=== PATIENT | female | born 1950 | race Caucasian/White ===

== ENCOUNTER → 2016-12-21 | Outpatient (CLI) | payer MEDICARE, OTHER ==
[2016-12-21 19:11] LABS: BASOPHILS % (AUTO) 0.5 %; EOSINOPHILS # (AUTO) 0.1 10^3/uL (0.0-0.7); EOSINOPHILS % (AUTO) 2.2 %; HCT - HEMATOCRIT 44.3 % (37.0-47.0); HGB - HEMOGLOBIN 14.8 g/dL (12.0-16.0); LYMPHOCYTES # (AUTO) 2.1 10^3/uL (1.5-3.5); LYMPHOCYTES % (AUTO) 31.8 %; MEAN CORPUSCULAR HEMOGLOBIN 34.8 pg (27.0-31.0); MEAN CORPUSCULAR HGB CONC 33.5 g/dL (32.0-36.0); MEAN CORPUSCULAR VOLUME 103.9 fL (81.0-99.0); MEAN PLATELET VOLUME 9.4 fL (7.9-10.8); MONOCYTES # (AUTO) 0.5 10^3/uL (0.0-1.0); NEUTROPHILS # (AUTO) 3.9 10^3/uL (1.5-6.6); NEUTROPHILS % (AUTO) 58.5 %; RED BLOOD COUNT 4.26 10^6/uL (4.20-5.40); RED CELL DISTRIBUTION WIDTH 13.9 % (12.0-15.0); UNCORRECTED WHITE BLOOD COUNT 6.7 x10^3/uL; WHITE BLOOD COUNT 6.7 x10^3/uL (4.8-10.8)
[2016-12-21 19:14] LABS: CHOL/HDL RATIO 3.2 (<4.4); CHOLESTEROL 213 mg/dL; HDL CHOLESTEROL 66 mg/dL; LDL/HDL RATIO 1.9 (<4.4); TRIGLYCERIDES 119 mg/dL; VLDL CHOLESTEROL 24 mg/dL
[2016-12-22 10:14] LABS: ALBUMIN/GLOBULIN RATIO 1.5 (1.0-2.2); BILIRUBIN,TOTAL 0.9 mg/dL (0.2-1.0); BUN - BLOOD UREA NITROGEN 15 mg/dL (6-20); CALCIUM 9.4 mg/dL (8.5-10.3); CARBON DIOXIDE - CO2 28 mmol/L (21-32); CHLORIDE 100 mmol/L (101-111); CREATININE 0.7 mg/dL (0.4-1.0); GFR - MDRD 84 (>89); GLUCOSE 86 mg/dL (70-100); POTASSIUM 4.2 mmol/L (3.5-5.0); SODIUM 137 mmol/L (135-145); TOTAL PROTEIN 6.8 g/dL (6.7-8.2)
== END ==
LOC: LAB.WCP 11:18
PROVIDERS: ATTEND Physician Assistant Medical
DX: E78.5 Hyperlipidemia, unspecified (principal); L65.9 Nonscarring hair loss, unspecified
CPT/HCPCS: 36415; 80053; 80061; 84443; 85025

== ENCOUNTER 2017-06-07 10:33 | Outpatient (CLI) | payer MEDICARE, OTHER ==
--- NOTE | 2017-06-18 13:56 | Mammography Report ---
DIGITAL SCREENING MAMMOGRAM: 06/07/2017 CLINICAL INDICATION: A 66-year-old with family history of breast cancer for screening. COMPARISON: The patient reports having had previous mammograms, but they are not available for direct comparison. If records in your office indicate where they were performed, we would be happy to try to obtain them for direct comparison. Otherwise, this will serve as a new baseline. TECHNIQUE: Routine CC and MLO projections were obtained of the breasts. FINDINGS: The breasts demonstrate fatty replacement bilaterally. Punctate, typically benign calcifications are present. No suspicious masses, clustered microcalcifications, or regions of architectural distortion are identified. IMPRESSION: BENIGN FINDINGS. RECOMMENDATION: Routine annual screening unless otherwise clinically indicated. BI-RADS CATEGORY 2 - BENIGN FINDINGS. STANDARD QUALIFYING STATEMENTS: 1. This examination was reviewed with the aid of Computer-Aided Detection (CAD). 2. A negative or benign imaging report should not delay biopsy if clinically suspicious findings are present. Consider surgical consultation if warranted. More than 5% of cancers are not identified by imaging. 3. Dense breasts may obscure an underlying neoplasm. TD: 06/18/2017 13:55
== END 2017-06-07 10:34 | disposition home or self-care (01) ==
LOC: DI 10:33
PROVIDERS: ATTEND Physician Assistant Medical
DX: Z12.31 Encounter for screening mammogram for malignant neoplasm of breast (principal); Z80.3 Family history of malignant neoplasm of breast
CPT/HCPCS: 77067

== ENCOUNTER 2017-06-12 09:06 | Outpatient (CLI) | payer MEDICARE, OTHER ==
--- NOTE | 2017-06-12 16:13 | DEXA Report ---
DEXA SCAN: 06/12/2017 CLINICAL INDICATION: Postmenopausal. TECHNIQUE: Dual energy x-ray absorptiometry (DXA) was performed on a [employer] system. Regions measured are the AP spine, femoral neck, and, if needed, forearm. COMPARISON: None. In accordance with the International Society for Clinical Densitometry (ISCD) guidelines, data from previous exams may be reanalyzed using current recommendations and techniques. This is done to allow a more accurate basis for comparison with the current study. FINDINGS Data for the lumbar spine is as follows: REGION BMD (g/cm/cm) T-SCORE Z-SCORE L1 0.972 -1.3 -0.6 L2 1.037 -1.4 -0.6 L3 1.131 -0.6 0.2 L4 1.183 -0.1 0.6 L1-L4 1.089 -0.8 0.0 NOTE: All evaluable vertebrae are used for classification. Data for the hip is as follows: REGION BMD (g/cm/cm) T-SCORE Z-SCORE Neck 1.006 -0.2 0.7 TOTAL 1.020 0.1 0.8 NOTE: The femoral neck or total proximal femur, whichever is lowest, is used for classification. IMPRESSION WHO CLASSIFICATION BASED ON THE INTERNATIONAL REFERENCE STANDARD IS NORMAL. FRACTURE RISK IS NOT INCREASED. RECOMMENDATION: Patients with diagnosis of osteoporosis or osteopenia should have regular bone mineral density assessment. For those eligible for Medicare, routine testing is allowed once every 2 years. Testing frequency can be increased for patients who have rapidly progressing disease or for those who are receiving medical therapy to restore bone mass. COMMENT World Health Organization (WHO) definitions for osteoporosis and osteopenia: NORMAL BMD: T-score at 1.0 or higher, fracture risk is low. OSTEOPENIA BMD: T-score between 1.0 and -2.5, fracture risk is increased. OSTEOPOROSIS BMD: T-score at 2.5 or lower, fracture risk high. National Osteoporosis Foundation recommends: 1. Obtain adequate dietary calcium (at least 1200 mg per day) and vitamin D (400 -800 international units per day). 2. Participate, as appropriate, in regular weightbearing and muscle- strengthening exercise. 3. Avoid tobacco use and reduce alcohol and caffeine intake. 4. For more detailed information see the website at www.NOF.org. TD: 06/12/2017 11:41 ZINA
== END 2017-06-12 09:07 | disposition home or self-care (01) ==
LOC: DI 09:06
PROVIDERS: ATTEND Physician Assistant Medical
DX: M89.9 Disorder of bone, unspecified (principal)
CPT/HCPCS: 77080

== ENCOUNTER 2017-12-20 07:39 | Outpatient (CLI) | payer MEDICARE, OTHER ==
[2017-12-20 13:10] LABS: BASOPHILS % (AUTO) 0.2 %; EOSINOPHILS % (AUTO) 0.3 %; HGB - HEMOGLOBIN 14.8 g/dL (12.0-16.0); LYMPHOCYTES # (AUTO) 1.2 10^3/uL (1.5-3.5); LYMPHOCYTES % (AUTO) 19.5 %; MEAN CORPUSCULAR HEMOGLOBIN 35.4 pg (27.0-31.0); MEAN CORPUSCULAR HGB CONC 34.6 g/dL (32.0-36.0); MEAN CORPUSCULAR VOLUME 102.5 fL (81.0-99.0); MEAN PLATELET VOLUME 9.1 fL (7.9-10.8); MONOCYTES # (AUTO) 0.3 10^3/uL (0.0-1.0); MONOCYTES % (AUTO) 5.3 %; NEUTROPHILS # (AUTO) 4.7 10^3/uL (1.5-6.6); NEUTROPHILS % (AUTO) 74.7 %; PLT - PLATELET COUNT 194 10^3/uL (130-450); RED BLOOD COUNT 4.18 10^6/uL (4.20-5.40); RED CELL DISTRIBUTION WIDTH 13.4 % (12.0-15.0); WHITE BLOOD COUNT 6.4 x10^3/uL (4.8-10.8)
[2017-12-20 13:28] LABS: ALBUMIN 3.9 g/dL (3.2-5.5); ALBUMIN/GLOBULIN RATIO 1.3 (1.0-2.2); ALKALINE PHOSPHATASE 57 IU/L (42-121); ALT ALANINE AMINOTRANSFERASE 45 IU/L (10-60); AST ASPARTATE AMINOTRANSFERASE 31 IU/L (10-42); BILIRUBIN,TOTAL 0.8 mg/dL (0.2-1.0); BUN - BLOOD UREA NITROGEN 19 mg/dL (6-20); CALCIUM 9.2 mg/dL (8.5-10.3); CARBON DIOXIDE - CO2 28 mmol/L (21-32); CHLORIDE 102 mmol/L (101-111); CHOL/HDL RATIO 3.9 (<4.4); CHOLESTEROL 255 mg/dL; CREATININE 0.7 mg/dL (0.4-1.0); GFR - MDRD 83 (>89); GLUCOSE 130 mg/dL (70-100); HDL CHOLESTEROL 65 mg/dL; LDL CHOLESTEROL,CALCULATED 173 mg/dL; LDL/HDL RATIO 2.7 (<4.4); SODIUM 136 mmol/L (135-145); VLDL CHOLESTEROL 17 mg/dL
[2017-12-20 13:40] LABS: HB2 TOTAL 15.6 g/dL; HEMOGLOBIN A1C 0.56 g/dL; HEMOGLOBIN A1C % 5.4 % (4.6-6.2)
== END 2017-12-20 07:40 | disposition home or self-care (01) ==
LOC: LAB.WCP 07:39
PROVIDERS: ATTEND Physician Assistant Medical
DX: I10 Essential (primary) hypertension (principal); E78.5 Hyperlipidemia, unspecified
CPT/HCPCS: 36415; 80053; 80061; 83036; 83721; 85025

== ENCOUNTER 2018-06-06 07:55 | Outpatient (CLI) | payer MEDICARE, OTHER ==
[2018-06-06 13:07] LABS: ALBUMIN 3.8 g/dL (3.2-5.5); ALBUMIN/GLOBULIN RATIO 1.4 (1.0-2.2); ALKALINE PHOSPHATASE 52 IU/L (42-121); ALT ALANINE AMINOTRANSFERASE 36 IU/L (10-60); AST ASPARTATE AMINOTRANSFERASE 28 IU/L (10-42); BILIRUBIN,TOTAL 0.7 mg/dL (0.2-1.0); BUN - BLOOD UREA NITROGEN 25 mg/dL (6-20); CALCIUM 8.7 mg/dL (8.5-10.3); CARBON DIOXIDE - CO2 29 mmol/L (21-32); CHLORIDE 100 mmol/L (101-111); CHOL/HDL RATIO 3.1 (<4.4); CHOLESTEROL 224 mg/dL; CREATININE 0.7 mg/dL (0.4-1.0); GFR - MDRD 83 (>89); GLUCOSE 97 mg/dL (70-100); HDL CHOLESTEROL 72 mg/dL; LDL CHOLESTEROL,CALCULATED 136 mg/dL; LDL/HDL RATIO 1.9 (<4.4); SODIUM 137 mmol/L (135-145); TOTAL PROTEIN 6.5 g/dL (6.7-8.2); VLDL CHOLESTEROL 16 mg/dL
[2018-06-06 13:12] LABS: HB2 TOTAL 15.3 g/dL; HEMOGLOBIN A1C 0.55 g/dL; HEMOGLOBIN A1C % 5.4 % (4.6-6.2)
== END 2018-06-06 07:56 | disposition home or self-care (01) ==
LOC: LAB.WCP 07:55
PROVIDERS: ATTEND Physician Assistant Medical
DX: E78.5 Hyperlipidemia, unspecified (principal); R73.9 Hyperglycemia, unspecified
CPT/HCPCS: 36415; 80053; 80061; 83036; 83721

== ENCOUNTER 2018-06-07 00:01 | Outpatient (CLI) | payer MEDICARE, OTHER ==
--- NOTE | 2018-06-07 01:29 | Ultrasound Report ---
Reason: VARICOSE VEINS, LOWER EXTREMITIES, CONTUSION OF RI Procedure Date: 06/07/2018 Accession Number: [id number] / [id number] Procedure: US - Duplex Ext Veins Right CPT Code: FULL RESULT: EXAM: RIGHT LOWER EXTREMITY VENOUS ULTRASOUND EXAM DATE: 06/07/2018 01:00 AM. CLINICAL HISTORY: VARICOSE VEINS, LOWER EXTREMITIES, CONTUSION. COMPARISON: None. TECHNIQUE: Real-time sonographic vascular imaging was performed by the shop blacksmith through the lower extremity utilizing both color-flow and Doppler spectral analysis. Multiple key account representative static images were saved for review. FINDINGS: Common Femoral Vein (CFV): Normal. CFV-GSV Junction: Normal. Profunda Femoral Vein (PFV): Normal. Femoral Vein (FV) Prox: Normal. Femoral Vein (FV) Mid: Normal. Femoral Vein (FV) Dist: Normal. Popliteal Vein: Normal. Posterior Tibial Veins: Normal. Peroneal Veins: Normal. Contralateral Side CFV: Normal. Other: Possible subcutaneous hematoma measuring 2.6 x 0.8 x 3.5 cm. IMPRESSION: No evidence for deep venous thrombosis. RADIA The call report notification system was initiated by Dr. Enrique Ramos at 01:27 AM on 06/07/2018.
== END 2018-06-07 00:02 | disposition home or self-care (01) ==
LOC: DI 00:01
PROVIDERS: ATTEND Family Medicine
DX: I83.90 Asymptomatic varicose veins of unspecified lower extremity (principal); S80.11XA Contusion of right lower leg, initial encounter

== ENCOUNTER 2018-06-11 10:00 | Outpatient (CLI) | payer MEDICARE, OTHER | END 2018-06-11 23:59 | disposition home or self-care (01) | LOC: LAB.WCP 10:00 | PROVIDERS: ATTEND Family Medicine | DX: S80.11XD Contusion of right lower leg, subsequent encounter (principal) | CPT/HCPCS: 87070; 87075; 87077; 87186; 87205 ==

== ENCOUNTER 2018-10-16 11:15 | Day surgery (SDC) | payer MEDICARE, OTHER ==
[2018-10-16] MEDS ORDERED: LACTATED RINGERS 1,000 ML IV ONE (11:36)
[2018-10-16] MEDS ORDERED: LIDO GARGLE 30 ML BOTTLE ONE (11:59)
[2018-10-16] MEDS ORDERED: LIDO GARGLE 30 ML BOTTLE PO ONE (12:52)
[2018-10-16 14:04] VITALS: BP 144/75
== END 2018-10-16 11:16 | disposition home or self-care (01) ==
LOC: SDS 11:15
PROVIDERS: ATTEND Surgery
PROC: 0DB68ZX Excision of Stomach, Via Natural or Artificial Opening Endoscopic, Diagnostic (ICD-10-PCS; 2018-10-16)
PROC: 0DB48ZX Excision of Esophagogastric Junction, Via Natural or Artificial Opening Endoscopic, Diagnostic (ICD-10-PCS; 2018-10-16)
PROC: 0DBN8ZZ Excision of Sigmoid Colon, Via Natural or Artificial Opening Endoscopic (ICD-10-PCS; principal; 2018-10-16 12:15)
PROC: 0DB98ZX Excision of Duodenum, Via Natural or Artificial Opening Endoscopic, Diagnostic (ICD-10-PCS; 2018-10-16 12:15)
DX: Z12.11 Encounter for screening for malignant neoplasm of colon (principal); D12.5 Benign neoplasm of sigmoid colon; K64.8 Other hemorrhoids; K57.30 Diverticulosis of large intestine without perforation or abscess without bleeding; K21.9 Gastro-esophageal reflux disease without esophagitis; K29.50 Unspecified chronic gastritis without bleeding; L43.9 Lichen planus, unspecified
CPT/HCPCS: 43239; 45380; A9270; J7120

== ENCOUNTER 2019-08-14 15:20 | Emergency (ER) | payer MEDICARE, OTHER ==
--- NOTE | 2019-08-14 17:25 | ED Physician Documentation ---
History of Present Illness - Stated complaint Stated Complaint: L ANKLE PAIN - Chief complaint Chief Complaint: Ext Problem - History obtained from History obtained from: Patient - History of Present Illness Timing: Prior to arrival, How many weeks ago (1) Pain level max: 4 Pain level now: 1 - Additonal information Additional information: 68-year-old female presents to the emergency department with chief complaint of about 1 week of left ankle and lower proximal calf pain and swelling. Reports pain in the ankle joint itself.Patient is most concerned that she could have a DVT. Patient reports that she had a history of varicosities and last year she had ablation of her veins at [facility] this was done to improve the swelling in her lower legs. She had no swelling until this recent episode. Patient denies any recent travel. Patient has no fevers. She has no recent trauma to the leg.She otherwise feels well but is quite concerned that she may have a DVT. Review of Systems Constitutional: denies: Fever, Chills Cardiac: reports: Pedal edema, Calf pain (left leg). denies: Chest pain / pressure, Palpitations Respiratory: denies: Dyspnea, Cough GI: denies: Abdominal Pain, Abdominal Swelling : denies: Dysuria Skin: denies: Rash, Lesions, Abrasion (s) Musculoskeletal: denies: Neck pain, Back pain Neurologic: denies: Generalized weakness, Focal weakness, Syncope, Seizure PD PAST MEDICAL HISTORY - Past Medical History Past Medical History: Yes Cardiovascular: Hypertension Respiratory: Pneumonia, Shortness of breath Neuro: None Endocrine/Autoimmune: None, Other GI: GERD, Colon polyps CANTEEN OPERATOR: None : None HEENT: None Psych: None Musculoskeletal: Osteoarthritis, Other Derm: Other - Past Surgical History General: Colonoscopy, EGD Ortho: Spine surgery - Present Medications Home Medications: Ambulatory Orders Medication Instructions Recorded Confirmed Triamterene/Hydrochlorothiazid 1 each PO DAILY 10/15/18 10/15/18 [Triamterene-Hctz 37.5-25 mg Cp] - Allergies Allergies/Adverse Reactions: Allergies Allergy/AdvReac Type Severity Reaction Status Date / Time Sulfa (Sulfonamide Allergy Itching Verified 08/14/19 15:29 Antibiotics) - Social History Does the pt smoke?: No Smoking Status: Never smoker Does the pt drink ETOH?: Yes ETOH Use: Wine Does the pt have substance abuse?: No PD ED PE NORMAL - General General: Alert and oriented X 3, No acute distress, Well developed/nourished - Neck Neck: Supple, no meningeal sign, No adenopathy - Cardiac Cardiac: RRR, No murmur - Respiratory Respiratory: No respiratory distress, Clear bilaterally - Abdomen Abdomen: Normal bowel sounds - Derm Derm: Normal color, Warm and dry, No rash - Extremities Extremities: No: No edema, No calf tenderness / cord (Left leg with mild pedal edema. Very mild tenderness on the lower proximal calf. No erythema. 2+ distal DP pulse with brisk cap refill.) Results - Vitals Vitals: Vital Signs - 24 hr 08/14/19 08/14/19 15:25 17:29 Temperature 36.7 C 36.7 C Heart Rate 67 59 L Respiratory 16 14 Rate Blood Pressure 146/74 H 133/67 H O2 Saturation 99 95 Oxygen O2 Source Room air - Labs Labs: Laboratory Tests 08/14/19 08/14/19 08/14/19 17:35 17:35 17:35 WBC 5.2 RBC 4.05 L Hgb 14.5 Hct 41.2 MCV 101.7 H MCH 35.8 H MCHC 35.2 RDW 12.6 Plt Count 167 MPV 10.3 Neut # (Auto) 2.8 Lymph # (Auto) 1.8 Trigg # (Auto) 0.4 Eos # (Auto) 0.2 Baso # (Auto) 0.0 Absolute Nucleated RBC 0.00 Nucleated RBC % 0.0 Sodium 137 Potassium 3.3 L Chloride 95 L Carbon Dioxide 28 Anion Gap 14.0 H BUN 15 Creatinine 0.7 Estimated GFR (MDRD) 83 L Glucose 98 Calcium 9.3 B-Natriuretic Peptide 24 - Rads (name of study) US DVT left leg Radiology: Final report received (Negative for acute DVT) PD MEDICAL DECISION MAKING - ED course Complexity details: reviewed results, re-evaluated patient, d/w patient ED course: 60-year-old female presents to the emergency department with chief complaint of about 1 week left ankle pain, pedal edema and some mild pain on the lower distal calf. 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 However her biggest concern at this time is that she could have a DVT in the left leg. - Ultrasound DVT is negative for acute thrombosis. Patient's renal function is preserved. Her BNP is normal and she has no crackles or hypoxia. Exam is not consistent with congestive heart failure. - She has no fevers, erythema, or leukocytosis. I have very little suspicion for infection within the skin or joint. 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 She is to schedule close follow-up with her primary care doctor. - Departure - Departure Disposition: 01 Home, Self Care Clinical Impression: Pedal edema, Swelling of left ankle joint Condition: Stable Instructions: ED Veins Varicose Comments: Your ultrasound does not show any blood clot in your left leg. Your labs are essentially normal. I do not have any findings that make me worry that you are having a heart attack or that your heart is failing or that you have a kidney problems. I think the swelling of the left lower leg is most likely due to a recurrence of the valve insufficiency. Please discuss this ED visit with your primary care provider for further evaluation. Return to the emergency department if you develop leg redness, have fevers, chest pain or difficulty breathing.
[2019-08-14 17:41] LABS: BASOPHILS % (AUTO) 0.8 %; EOSINOPHILS # (AUTO) 0.2 10^3/uL (0.0-0.7); EOSINOPHILS % (AUTO) 3.8 %; HGB - HEMOGLOBIN 14.5 g/dL (12.0-16.0); LYMPHOCYTES # (AUTO) 1.8 10^3/uL (1.5-3.5); LYMPHOCYTES % (AUTO) 33.8 %; MEAN CORPUSCULAR HEMOGLOBIN 35.8 pg (27.0-31.0); MEAN CORPUSCULAR HGB CONC 35.2 g/dL (32.0-36.0); MEAN CORPUSCULAR VOLUME 101.7 fL (81.0-99.0); MEAN PLATELET VOLUME 10.3 fL (7.9-10.8); MONOCYTES # (AUTO) 0.4 10^3/uL (0.0-1.0); MONOCYTES % (AUTO) 7.7 %; NEUTROPHILS # (AUTO) 2.8 10^3/uL (1.5-6.6); NEUTROPHILS % (AUTO) 53.5 %; PLT - PLATELET COUNT 167 10^3/uL (130-450); RED BLOOD COUNT 4.05 10^6/uL (4.20-5.40); RED CELL DISTRIBUTION WIDTH 12.6 % (12.0-15.0); WHITE BLOOD COUNT 5.2 x10^3/uL (4.8-10.8)
[2019-08-14 17:45] VITALS: BP 133/67
[2019-08-14 17:49] LABS: CALCIUM 9.3 mg/dL (8.5-10.3); CREATININE 0.7 mg/dL (0.4-1.0)
--- NOTE | 2019-08-14 19:07 | Ultrasound Report ---
PROCEDURE: Duplex Ext Veins Left INDICATIONS: left ankle proximal calf swelling TECHNIQUE: Real-time imaging, as well as color and pulse Doppler interrogation, were performed of the lower extr emity deep veins from the inguinal ligament to the popliteal fossa. COMPARISON: None. FINDINGS: The deep veins are normally compressible, and free of intraluminal thrombus. Color and pu lse Doppler demonstrate normal phasic intraluminal flow. There is normal augmentation response to di stal compression maneuver. IMPRESSION: No evidence of deep venous thrombosis. Reviewed by: Jose Valadez MD on 08/14/2019 7:06 PM PDT Approved by: Jose Valadez MD on 08/14/2019 7:06 PM PDT Station ID: [id number]
== END 2019-08-14 18:59 | disposition home or self-care (01) ==
LOC: ED 15:20
DX: R60.0 Localized edema (principal); M25.472 Effusion, left ankle
CPT/HCPCS: 36415; 80048; 83880; 85025; 99284

== ENCOUNTER 2019-11-25 17:50 | Outpatient (CLI) | payer MEDICARE, OTHER ==
--- NOTE | 2019-11-25 17:53 | XRAY Report ---
PROCEDURE: Hip 1 View RT INDICATIONS: RIGHT HIP PAIN TECHNIQUE: 2 views of the hip were acquired. COMPARISON: None. FINDINGS: Bones: No acute fractures or dislocations. Mild degenerative changes of the bilateral hips. Lower l umbar spondylosis. Mild degenerative changes of the bilateral sacroiliac joints. Chronic appearing co rticated ossification over the ischial tuberosity. No suspicious bony lesions. The visualized pelvic ring appears intact. Soft tissues: No suspicious soft tissue calcifications or masses. IMPRESSION: Right hip without acute radiographic abnormalities. Mild degenerative changes of the bilateral hips, lower lumbar spine, and sacroiliac joints. Reviewed by: Lex Ruth MD on 11/25/2019 5:51 PM PDT Approved by: Lex Ruth MD on 11/25/2019 5:51 PM PDT Station ID: [id number]
== END 2019-11-25 23:59 | disposition home or self-care (01) ==
LOC: DI.WCP 17:50
PROVIDERS: ATTEND Physician Assistant Medical
DX: M16.0 Bilateral primary osteoarthritis of hip (principal); M47.816 Spondylosis without myelopathy or radiculopathy, lumbar region; M47.818 Spondylosis without myelopathy or radiculopathy, sacral and sacrococcygeal region

== ENCOUNTER 2019-12-03 08:00 | Outpatient (CLI) | payer MEDICARE, OTHER ==
[2019-12-03 11:39] LABS: BASOPHILS # (AUTO) 0.1 10^3/uL (0.0-0.1); BASOPHILS % (AUTO) 0.8 %; EOSINOPHILS # (AUTO) 0.3 10^3/uL (0.0-0.7); EOSINOPHILS % (AUTO) 4.2 %; LYMPHOCYTES # (AUTO) 2.3 10^3/uL (1.5-3.5); LYMPHOCYTES % (AUTO) 38.8 %; MEAN CORPUSCULAR HEMOGLOBIN 34.6 pg (27.0-31.0); MEAN CORPUSCULAR HGB CONC 33.3 g/dL (32.0-36.0); MEAN CORPUSCULAR VOLUME 104.2 fL (81.0-99.0); MEAN PLATELET VOLUME 10.6 fL (7.9-10.8); MONOCYTES # (AUTO) 0.4 10^3/uL (0.0-1.0); NEUTROPHILS # (AUTO) 2.9 10^3/uL (1.5-6.6); NEUTROPHILS % (AUTO) 48.7 %; PLT - PLATELET COUNT 183 10^3/uL (130-450); RED BLOOD COUNT 4.33 10^6/uL (4.20-5.40); RED CELL DISTRIBUTION WIDTH 12.9 % (12.0-15.0)
[2019-12-03 12:10] LABS: ALBUMIN 3.8 g/dL (3.2-5.5); ALBUMIN/GLOBULIN RATIO 1.4 (1.0-2.2); ALKALINE PHOSPHATASE 55 IU/L (42-121); ALT ALANINE AMINOTRANSFERASE 37 IU/L (10-60); AST ASPARTATE AMINOTRANSFERASE 24 IU/L (10-42); BILIRUBIN,TOTAL 0.7 mg/dL (0.2-1.0); BUN - BLOOD UREA NITROGEN 22 mg/dL (6-20); CALCIUM 8.9 mg/dL (8.5-10.3); CARBON DIOXIDE - CO2 28 mmol/L (21-32); CHLORIDE 98 mmol/L (101-111); CHOL/HDL RATIO 3.7 (<4.4); CHOLESTEROL 252 mg/dL; CREATININE 0.7 mg/dL (0.4-1.0); GLUCOSE 111 mg/dL (70-100); HDL CHOLESTEROL 68 mg/dL; LDL CHOLESTEROL,CALCULATED 160 mg/dL; LDL/HDL RATIO 2.4 (<4.4); SODIUM 138 mmol/L (135-145); TOTAL PROTEIN 6.5 g/dL (6.7-8.2); VLDL CHOLESTEROL 24 mg/dL
[2019-12-03 19:59] LABS: HEMOGLOBIN A1c% 5.3 % (4.27-6.07)
== END 2019-12-03 23:59 | disposition home or self-care (01) ==
LOC: LAB.WCP 08:00
PROVIDERS: ATTEND Physician Assistant Medical
DX: E78.5 Hyperlipidemia, unspecified (principal); R73.9 Hyperglycemia, unspecified; K21.9 Gastro-esophageal reflux disease without esophagitis
CPT/HCPCS: 36415; 80053; 80061; 83036; 83721; 85025

== ENCOUNTER 2020-01-14 13:06 | Outpatient (CLI) | payer MEDICARE, OTHER ==
--- NOTE | 2020-01-15 07:44 | Mammography Report ---
BILATERAL DIGITAL SCREENING MAMMOGRAM: 01/14/2020 CLINICAL: Family history of breast cancer. Routine screening. Comparison is made to exam dated: 06/07/2017 mammogram - [facility]. The tissue of both breasts is predominantly fatty. No significant masses, calcifications, or other findings are seen in either breast. There has been no significant interval change. IMPRESSION: NEGATIVE There is no mammographic evidence of malignancy. A 1 year screening mammogram is recommended. This exam was interpreted at Station ID: [id number]. NOTE: For mammograms, a report in lay terms will be sent to the patient. Approximately 15% of breast malignancies will not be visualized mammographically. In the management of a palpable breast mass, a negative mammogram must not discourage biopsy of a clinically suspicious lesion. Electronically Signed By: Lex Ruth M.D. [email or web address]:01/14/2020 14:34:19 ACR BI-RADS Category 1: Negative 3341F PARENCHYMAL PATTERN: (F) - The breast(s) demonstrate(s) diffuse fatty replacement. BI-RADS CATEGORY: (1) - 1 RECOMMENDATION: (ANNUAL) - Recommend routine annual screening mammography. [id number] 1 year screening LATERALITY: (B)
== END 2020-01-14 13:07 | disposition home or self-care (01) ==
LOC: DI.N 13:06
DX: Z12.31 Encounter for screening mammogram for malignant neoplasm of breast (principal); Z80.3 Family history of malignant neoplasm of breast

== ENCOUNTER 2020-03-18 07:27 | Outpatient (CLI) | payer MEDICARE, OTHER ==
--- NOTE | 2020-03-18 15:50 | XRAY Report ---
PROCEDURE: Hip w/Pelvis 2-3V RT INDICATIONS: HIP PAIN, RIGHT TECHNIQUE: AP pelvis with lateral view(s) of the bilateral hip(s). COMPARISON: None. FINDINGS: Bones: No fractures or dislocations. Pelvic ring appears intact. No suspicious bony lesions. Mild right hip osseous hypertrophy compatible mild osteophytosis. Soft tissues: The visualized bowel gas pattern is normal. No suspicious soft tissue calcifications. IMPRESSION: 1. Mild right hip osteoarthritis. 2. No fracture. No acute osseous lesion. If there persistent symptoms or continued clinical concern f or pathology, then repeat plain film radiographs (7-10 days) or advanced imaging (CT, MR, bone scan) should be considered for further evaluation. Reviewed by: Tamara Collins MD, PhD on 03/18/2020 3:49 PM PST Approved by: Tamara Collins MD, PhD on 03/18/2020 3:49 PM PST Station ID: [id number]
== END 2020-03-18 23:59 | disposition home or self-care (01) ==
LOC: DI.N 07:27
PROVIDERS: ATTEND Orthopaedic Surgery
DX: M16.11 Unilateral primary osteoarthritis, right hip (principal)

== ENCOUNTER 2020-05-03 07:00 | Outpatient (CLI) | payer MEDICARE, OTHER ==
--- NOTE | 2020-05-03 10:53 | XRAY Report ---
PROCEDURE: Hip w/Pelvis 1V LT INDICATIONS: L HIP PX TECHNIQUE: AP pelvis with lateral view(s) of the left hip(s). COMPARISON: None. FINDINGS: Bones: No fractures or dislocations. Pelvic ring appears intact. No suspicious bony lesions. Mild symmetric hip joint space narrowing. Soft tissues: The visualized bowel gas pattern is normal. No suspicious soft tissue calcifications. IMPRESSION: Mild symmetric degenerative osteoarthritic hip joint space narrowing, no trauma found. Reviewed by: Jose Armando Villarreal MD on 05/03/2020 10:52 AM PDT Approved by: Jose Armando Villarreal MD on 05/03/2020 10:52 AM PDT Station ID: [id number]
== END 2020-05-03 23:59 | disposition home or self-care (01) ==
LOC: DI.N 07:00
PROVIDERS: ATTEND Orthopaedic Surgery
DX: M16.12 Unilateral primary osteoarthritis, left hip (principal)

== ENCOUNTER 2020-12-01 14:48 | Outpatient (CLI) | payer MEDICARE, OTHER ==
--- NOTE | 2020-12-01 15:30 | SLEEP CARE CONSULTATION ---
Information from patient questionnaire entered by Fanta Hooker. I have reviewed and concur with the information entered by Fanta Hooker. This document represents the service I personally performed and the decisions made by me, Denae Correia ARNP. History of Present Illness Service Date and Time: 12/01/2020 1448 Reason for Visit: New patient Chief Complaint: reports: Insomnia (has trouble staying asleep or going back to sleep), Snoring (if laying on back), Observed pauses in breathing, Frequent awakenings at night, Other ( wants her evaluated) Date of Onset: since menopause, 2000 Usual bedtime: 2100, depends Time it takes to fall asleep: 15 minutes, normally Snores at night: Yes (on her back) Observed to quit breathing while asleep: Yes Sleeps alone due to snoring: No Number of times waking at night: 3-4 Reasons for waking at night: reports: Pain, Other (unknown reason) Toss, Turn, or Twitch while sleeping: Yes (sometimes) Recalls having dreams: Yes Usually gets out of bed at: [id number] Feels refreshed in the morning: Yes (unless she has a bad night sleep) Morning headache: No Sleepy or fatigued during the day: Yes (about 3pm occasionally) Ever fallen asleep while driving: No Takes day naps: Yes (power naps occasionally) Prior sleep studies: No Additional HPI information: I had the pleasure of seeing [facility] today regarding the possibility of her having a sleep disorder. Her current complaints are snoring, pauses in breathing, insomnia and frequent night awakening. Patient states she has many times where she will can fall asleep quickly but then she will wake up hourly through the night. She usually can wake up feeling refreshed unless she has had a very bad night of awakening. She does have snoring especially if she is sleeping on her back. Her has told her that she stops breathing when sleeping. Her recently had a sleep study of his own and is waiting to get his CPAP. Her father was treated for sleep apnea with a Pap machine. - Parasomnia Symptoms Ever been unable to move upon waking from sleep: No Walks in sleep: No Talks in sleep: Yes Ever acted out dreams in sleep: No Ever felt weak in the knees when startled or emotional: No Bothered by creepy, crawly, restless sensations in legs: No Problems with memory or concentration: Yes (sometimes; concentration, hard to multitask anymore; recall difficulties) Subjective Initial Montreal Sleepiness Scale score: 8 (in 2020) Past Medical History Past Medical History: reports: Hypertension, Other (lichen planus; peripheral vascular issues) Social History The patient's occupation is a RE. Patient is and lives in [place]. Have you smoked in the past 12 months: No Cigarettes per day (20/pack): 20 Years of smokin Quit date: 2011 Smoking Pack Years: 40.0 Alcohol use: Yes Alcohol amount and frequency: wine, 1-2 daily Caffeine use: Yes Caffeine amount and frequency: 1-2 coffee in morning Family History Family history of sleep disordered breathing: Yes Family Hx Sleep Apnea: Father: Sleep apnea - Treated Allergies and Home Medications Drug allergies reviewed: Yes (Sulfa) Home medication list reviewed: Yes Allergy and home medication list: Clobetasol gel for lichen planus Pimecrolimus cream, new, for lichen planus Triamterine/HCTZ Turmeric Vitamin D3 Lutein & Zeaxanthin Co Q10 Review of Systems Weight gain over past 5 years: 5 Cardiovascular: reports: high blood pressure, leg or foot swelling Gastrointestinal: reports: difficulty swallowing Neurological: denies: headaches Psychiatric: denies: anxiety, depression Ear/Nose/Throat: reports: wisdom teeth removed. denies: nasal congestion, sinus problems, injury to nose, tonsillectomy Endocrine: denies: thyroid disease Musculoskeletal: reports: joint pain (stiffness*), back pain, muscle pain or cramping Immunologic: denies: allergies to food or environment Physical Exam Blood Pressure: 119/86 (left) Cuff size: wrist Heart Rate: 65 O2 Saturation: 98 Height: 5 ft 7 in Weight: 208 lb Body Mass Index: 32.5 BMI Classification: Obese Neck circumference: 15 (inches) Mouth and throat: narrow oropharynx Soft palate: long Hard palate: normal Uvula: normal Uvula visualization: 50% Mallampati Class II Tongue: normal in size Tonsils: small Neck: normal w/o lymphadenopathy or thyromegaly Heart: regular rate and rhythm Lungs: clear bilaterally Impression and Plan 1. Suspected Obstructive Sleep Apnea-Hypopnea Syndrome, as suggested by a history of irregular snoring, observed cessation of breath while asleep, frequent awakening during the night, and cognitive impairment. Narrow oropharynx and obesity are common predisposing factors for obstructive sleep apnea-hypopnea syndrome. I recommend proceeding to polysomnography to confirm the diagnosis and to assess severity. If the patient has significant sleep disordered breathing, a manual CPAP titration study will also be performed to find the optimal treatment pressure. I informed the patient of what the sleep studies involve and after some discussion, obtained agreement to proceed. The pathophysiology of obstructive sleep apnea-hypopnea syndrome was discussed with the patient and health risks of cardiovascular and cerebrovascular disease if not treated. [AAS brochure for obstructive sleep apnea-hypopnea syndrome given and reviewed.] Risks of drowsy driving discussed in detail and patient advised to avoid long distance driving and to pipe puller at the first sign of drowsiness. Patient agreed to plan. [AAS drowsy driving brochure given.] * Schedule polysomnography +- manual CPAP titration study and return in 1-2 weeks after the study to discuss result and initiate therapy. * Avoid long distance driving or driving when feeling sleepy. * Avoid alcohol, sedative and muscle relaxant around bedtime. * Attempt to lose weight. * Review instructions provided by trained office staff on how to prepare for the sleep study. * Return for follow-up after sleep study completed. Counseling Topics: Weight loss health impact Visit Type: In Office Time Spent with Patient (minutes): 31 Provider Statement: I spent 100% of the Face to Face Visit with the patient with greater than 50% spent counseling the patient and coordination of care.
[2020-12-01 15:31] VITALS: BP 119/86
== END 2020-12-01 14:49 | disposition home or self-care (01) ==
LOC: SC 14:48
PROVIDERS: ATTEND Nurse Practitioner Family
DX: R41.89 Other symptoms and signs involving cognitive functions and awareness (principal); G47.8 Other sleep disorders; R06.81 Apnea, not elsewhere classified; R06.83 Snoring; Z87.891 Personal history of nicotine dependence; E66.9 Obesity, unspecified; Z68.32 Body mass index [BMI] 32.0-32.9, adult
CPT/HCPCS: 99203; G0463; 99212

== ENCOUNTER 2020-12-13 08:57 | Outpatient (CLI) | payer MEDICARE, OTHER ==
[2020-12-13 12:48] LABS: ALBUMIN 4.3 g/dL (3.2-5.5); ALBUMIN/GLOBULIN RATIO 1.5 (1.0-2.2); ALKALINE PHOSPHATASE 58 IU/L (42-121); ALT ALANINE AMINOTRANSFERASE 36 IU/L (10-60); AST ASPARTATE AMINOTRANSFERASE 28 IU/L (10-42); BILIRUBIN,TOTAL 0.8 mg/dL (0.2-1.0); BUN - BLOOD UREA NITROGEN 25 mg/dL (6-20); CALCIUM 9.6 mg/dL (8.5-10.3); CARBON DIOXIDE - CO2 28 mmol/L (21-32); CHLORIDE 100 mmol/L (101-111); CHOL/HDL RATIO 3.5 (<4.4); CHOLESTEROL 237 mg/dL; CREATININE 0.7 mg/dL (0.4-1.0); GFR - MDRD 83 (>89); GLUCOSE 101 mg/dL (70-100); HDL CHOLESTEROL 68 mg/dL; LDL CHOLESTEROL,CALCULATED 150 mg/dL; LDL/HDL RATIO 2.2 (<4.4); SODIUM 136 mmol/L (135-145); TOTAL PROTEIN 7.2 g/dL (6.7-8.2); TRIGLYCERIDES 93 mg/dL; VLDL CHOLESTEROL 19 mg/dL
[2020-12-13 12:53] LABS: ESTIMATED AVERAGE GLUCOSE 111 mg/dL (70-100); HEMOGLOBIN A1c% 5.5 % (4.27-6.07)
== END 2020-12-13 23:59 | disposition home or self-care (01) ==
LOC: LAB.WCP 08:57
PROVIDERS: ATTEND Physician Assistant Medical
DX: E78.5 Hyperlipidemia, unspecified (principal); R73.9 Hyperglycemia, unspecified
CPT/HCPCS: 36415; 80053; 80061; 83036; 83721

== ENCOUNTER 2020-12-29 19:41 | Outpatient (CLI) | payer MEDICARE, OTHER | END 2020-12-29 19:42 | disposition home or self-care (01) | LOC: SC 19:41 | PROVIDERS: ATTEND Nurse Practitioner Family | DX: G47.33 Obstructive sleep apnea (adult) (pediatric) (principal); G47.61 Periodic limb movement disorder | CPT/HCPCS: 95810 ==

== ENCOUNTER 2021-01-05 09:20 | Outpatient (CLI) | payer MEDICARE, OTHER ==
[2021-01-05 10:04] VITALS: BP 140/71
--- NOTE | 2021-01-05 10:04 | SLEEP CARE CONSULTATION ---
Information from patient questionnaire entered by Onur Sheppard MA. I have reviewed and concur with the information entered by Onur Sheppard MA. This document represents the service I personally performed and the decisions made by , Denae Correia ARNP. History of Present Illness Service Date and Time: 01/05/2021 0920 Initial [place] Sleepiness Scale score: 8 Current [place] Sleepiness Scale score: 8 (in 2020) Additional HPI information: GOPI LIZ returns for follow up and results of the recently performed polysomnography. I explained the pathophysiology behind obstructive sleep apnea. We then spent quite a bit of time discussing different treatment options. For mild obstructive sleep apnea, surgery and oral appliance are alternatives to nasal CPAP therapy but in moderate or severe cases, nasal CPAP is the most effective and reliable treatment. Because apnea is primarily in supine position, then positional management therapy could be effective. Methods discussed such as positioning with pillows to prevent supine sleep. I reviewed the impact of weight changes on sleep apnea and strongly recommended losing weight. After some discussion, the patient opted to go with the nasal CPAP therapy. Nasal autoCPAP set at 4-15 cmH20 will be ordered with rationale explained. A manual titration study will be ordered if unable to find optimal pressure with office adjustments. I explained how CPAP machine works with sample devices [employer] and [employer] [id number] and what to expect when using the machine. Using CPAP every night in order to get used to it was emphasized. Patient advised to put CPAP mask on before getting into bed so as not to fall asleep without CPAP. To assist acclimation to CPAP use, it could also be used for a short time during day while reading or watching TV. The patient was instructed to call the CPAP supplier to discuss any mechanical problem that may occur. If the mask given is uncomfortable or is difficult to keep on through the night even with adjustment, contact the CPAP supplier as many will replace with another mask style if notified before 30 days. If snoring or perceives is not getting enough air or too much air from the machine, notify this office. [facility] patient education PAP tips reviewed and given to patient. Patient counseled not drink alcohol less than 4 hours before bedtime as it can increase snoring and apnea. Patient was cautioned about risks of drowsy driving until sleepiness symptoms resolve. Sleep Study - Results Type of Sleep Study: Polysomnography Prior sleep studies: Yes Polysomnography/Home Sleep Study results: IMPRESSION: The quality of the study is good. The patient had reduced sleep efficiency due to frequent awakenings throughout the night The sleep architecture was abnormal for sleep fragmentation and reduced amount of time spent in REM sleep. Respiratory monitoring showed severe obstructive sleep apnea-hypopnea (AHI = 44.4) associated with frequent arousals, oxyhemoglobin desaturation and moderate hypoxia (isaias oxygen saturation of 73%). Baseline oxygen saturation was normal. The respiratory events occurred more frequently during supine sleep (supine AHI = 90.0; non-supine = 35.97). Snore was light to loud in intensity. There was severe periodic leg movement of sleep not contributing to the sleep fragmentation. Cardiac rhythm was normal sinus rhythm without significant arrhythmia. No abnormal behavior (parasomnia) observed during the night. Allergies and Home Medications Known drug allergies: Yes (sulfa drugs) Home medication list reviewed: Yes (no changes) Review of Systems Review of systems same as previous: Yes (no changes) Physical Exam Vital signs obtained and entered by: FELIZ Barkley Blood Pressure: 140/71 (right) Cuff size: wrist Heart Rate: 59 O2 Saturation: 97 (with mask) Height: 5 ft 7 in Weight: 202 lb (with winter clothes) Body Mass Index: 31.6 BMI Classification: Obese Impression and Plan 1. Obstructive Sleep Apnea-Hypopnea Syndrome, severe, with lowest oxygen saturation of 73%. Obviously this is the cause of the patients symptoms of unrefreshed sleep, and excessive daytime sleepiness. Positive pressure therapy could benefit hypertension. As mentioned above, the patient will be started on nasal autoCPAP therapy with pressure set at 4-15 cmH2O. A manual titration study will be completed if unable to find optimal treatment pressure with office adjustments. Compliance guidelines also reviewed. A copy of compliance guidelines will be given for reference at check out. Because the apnea is more severe supine, I instructed to avoid sleeping supine using pillow positioning until able to start CPAP use. 2. Hypoxemia, moderate. She had a isaias oxygen saturation of 73%. Her baseline oxygen saturation was normal with an average of 90%. 3. Periodic limb movement, severe, that did not fragment patients sleep. Periodic limb movement of sleep (PLMS) is characterized by episodes of repetitive limb movements that occur during sleep and usually involve the lower limbs. The etiology is unknown but can be associated with restless leg syndrome (RLS), low serum ferritin level below 50 to 75mcg / L, neuropathy, spinal cord diseases, kidney disease, rheumatological disorders, narcolepsy, obstructive sl eep apnea, and REM sleep behavior disorder. Caffeine can also aggravate PLMS and should be avoided. Sleep hygiene methods can also improve sleep as well as lifestyle changes such as regular exercise. Patient was advised that no treatment is needed at this time. If symptoms increase, then further evaluation is indicated. * Nasal auto CPAP therapy, pressure at 4-15 cm H2O. * Attempt to lose weight. * Avoid alcohol consumption near bedtime. * Avoid supine sleep until using CPAP. * The patient is again cautioned about driving until sleepiness completely resolves. * Return one month after CPAP obtained. I will assess response to therapy and compliance at that time. Counseling Topics: Spare mask, Weight loss health impact Visit Type: In Office Time Spent with Patient (minutes): 21 Provider Statement: I spent 100% of the Face to Face Visit with the patient with greater than 50% spent counseling the patient and coordination of care.
== END 2021-01-05 09:21 | disposition home or self-care (01) ==
LOC: SC 09:20
PROVIDERS: ATTEND Nurse Practitioner Family
DX: G47.33 Obstructive sleep apnea (adult) (pediatric) (principal); R09.02 Hypoxemia; G47.61 Periodic limb movement disorder; E66.9 Obesity, unspecified; Z68.31 Body mass index [BMI] 31.0-31.9, adult
CPT/HCPCS: 99213; G0463; 99212

== ENCOUNTER 2021-04-01 10:52 | Outpatient (CLI) | payer MEDICARE, OTHER ==
--- NOTE | 2021-04-01 11:46 | SLEEP CARE CONSULTATION ---
Information from patient questionnaire entered by Onur Sheppard MA. I have reviewed and concur with the information entered by Onur Sheppard MA. This document represents the service I personally performed and the decisions made by , Denae Correia ARNP. History of Present Illness Service Date and Time: 04/01/2021 1052 Previous diagnosis: Severe, Obstructive Sleep Apnea-Hypopnea Syndrome AHI: 44.4 Reason for follow up: first compliance (SET UP DATE 02/02, MELODY - WILL NEED CHIP) Equipment type: CPAP Equipment obtained from: Other ([employer]; has gotten some supplies) Mask style: Nasal pillows Mask brand: MELODY 2 Backup mask available: Yes (other mask) Prior sleep studies: Yes Type of Sleep Study: Polysomnography HPI additional information: GOPI LIZ was diagnosed to have severe, AHI 44.4, obstructive sleep apnea-hypopnea syndrome and returned today for CPAP therapy first compliance follow-up. Sleep Study - Results Type of Sleep Study: Polysomnography Prior sleep studies: Yes CPAP Compliance Data - Data Reviewed with Patient Average duration of nightly device use: 6 hours 14 mins Compliance rate %: 84.7 Current pressure setting (cmH2O): 4-15 (mean 6.5, P95 7.9) Average residual AHI: 0.5 Central apnea: 0.1 Average large leak: 4.9 LPM Subjective Missed days of use due to: reports: travel Patient concerns: reports: mask leak noise, condensation in mask/hose, dry mouth, nose, throat. denies: aerophagia, mask discomfort, air blowing in eyes, nasal congestion, epistaxis, other Observed to snore while using device: No Current pressure setting perceived as: comfortable (ADJUST RAMP TIME LENGHT,) On therapy, patient: reports: sleeping better, awakening more refreshed, being more awake and alert during the day, more rested overall. denies: drowsiness while driving Initial [place] Sleepiness Scale score: 8 Current [place] Sleepiness Scale score: 5 (2021) Allergies and Home Medications Known drug allergies: Yes (SUFA MEDS) Drug allergies reviewed: Yes Home medication list reviewed: Yes (Cortisone SHOT IN LEFT HIP (SUNDAY)) Allergy and home medication list: Allergies Sulfa (Sulfonamide Antibiotics) Allergy (Verified 07/02/20 15:29) Itching Review of Systems Review of systems same as previous: Yes (no changes) Physical Exam Vital signs obtained and entered by: FELIZ PIERRE Blood Pressure: 123/70 (RIGHT, PULSE 54, RSP 16, ) Cuff size: wrist Heart Rate: 72 O2 Saturation: 97 (N95 MASK) Height: 5 ft 7 in Weight: 204 lb (W/O CLOTHES) Body Mass Index: 31.9 BMI Classification: Obese Impression and Plan 1. Obstructive Sleep Apnea-Hypopnea Syndrome, severe, with good treatment compliance and excellent apnea control. On CPAP therapy, the patient has better sleep quality and is more rested overall. The patients pressure will be changed to autoCPAP 6-8 cmH20 to reflect pressure being used. Patient advised to contact me if pressure change is uncomfortable so that it can be adjusted. Goals for apnea control discussed. Patient's apnea severity and rationale for treatment to reduce apnea, improve sleep quality and reduce cardiovascular and cerebrovascular events was reviewed. I also reviewed the benefit of consistent device use of CPAP for hypertension. 2. Obesity, unspecified. Currently patients BMI is 31.9. Obesity increases the risk of apnea, CPAP pressure requirements and overall health risks especially cardiovascular and diabetes. Thus patient is advised to lose weight. Weight loss can be done with reducing portion size, reducing refined foods and balancing content with vegetables, fruit and whole grain foods. In addition, patient encouraged to get regular exercise. * Change auto CPAP pressure to 6-8 cmH2O * Notify me if snoring with mask or feeling that the pressure is too much or too little * Attempt to lose weight * Call this office if any problems using CPAP * Return for follow up in 1-2 months, or sooner if concerns arise Counseling Topics: Spare mask, Weight loss health impact Visit Type: In Office Time Spent with Patient (minutes): 27 Provider Statement: I spent 100% of the Face to Face Visit with the patient with greater than 50% spent counseling the patient and coordination of care.
[2021-04-01 11:47] VITALS: BP 123/70
== END 2021-04-01 10:53 | disposition home or self-care (01) ==
LOC: SC 10:52
PROVIDERS: ATTEND Nurse Practitioner Family
DX: G47.33 Obstructive sleep apnea (adult) (pediatric) (principal); E66.9 Obesity, unspecified; Z68.31 Body mass index [BMI] 31.0-31.9, adult
CPT/HCPCS: 99213; G0463; 99212

== ENCOUNTER 2021-04-25 08:00 | Outpatient (CLI) | payer MEDICARE, OTHER ==
--- NOTE | 2021-04-25 10:28 | XRAY Report ---
PROCEDURE: Hip 2 View LT INDICATIONS: LEFT HIP PIAN TECHNIQUE: 2 views of the hip were acquired. COMPARISON: None FINDINGS: Bones: No fractures or dislocations. Mild to moderate bilateral hip joint osteoarthritic changes are seen. No evidence of avascular necrosis of femoral head. No suspicious bony lesions. The visualized pelvic ring appears intact. Soft tissues: No suspicious soft tissue calcifications or masses. 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 No hip fracture or dislocation. No evidence of a vascular necrosis. Reviewed by: Matt Flaherty MD on 04/25/2021 10:27 AM PDT Approved by: Matt Flaherty MD on 04/25/2021 10:27 AM PDT Station ID: [id number]
--- NOTE | 2021-04-25 10:35 | XRAY Report ---
PROCEDURE: Knee 4 View BILAT INDICATIONS: BILAT KNEE PAIN TECHNIQUE: 4 views of the bilateral knee(s) were acquired. COMPARISON: None. FINDINGS: Bones: No fractures or dislocations. There is right worse than left bilateral medial femoral tibial compartment osteoarthritis. No patella subluxation. No suspicious bony lesions. Soft tissues: No joint effusion. No suspicious soft tissue calcifications. IMPRESSION: Right worse than left bilateral medial femoral tibial compartment osteoarthritis. No fra cture or dislocation. No significant joint effusion. Reviewed by: Matt Flaherty MD on 04/25/2021 10:34 AM PDT Approved by: Matt Flaherty MD on 04/25/2021 10:34 AM PDT Station ID: [id number]
== END 2021-04-25 23:59 ==
LOC: DI.WOS 08:00
PROVIDERS: ATTEND Physician Assistant
DX: M17.0 Bilateral primary osteoarthritis of knee (principal); M70.62 Trochanteric bursitis, left hip; M16.0 Bilateral primary osteoarthritis of hip

== ENCOUNTER 2021-04-28 12:25 | Outpatient (CLI) | payer MEDICARE, OTHER ==
--- NOTE | 2021-04-29 10:13 | Mammography Report ---
BILATERAL DIGITAL SCREENING MAMMOGRAM 3D/2D: 04/28/2021 CLINICAL: Family history of breast cancer. Routine screening. Comparison is made to exams dated: 01/14/2020 mammogram and 06/07/2017 mammogram - [facility]. The tissue of both breasts is predominantly fatty. No significant masses, calcifications, or other findings are seen in either breast. There has been no significant interval change. IMPRESSION: NEGATIVE There is no mammographic evidence of malignancy. A 1 year screening mammogram is recommended. This exam was interpreted at Station ID: [id number]. NOTE: For mammograms, a report in lay terms will be sent to the patient. Approximately 15% of breast malignancies will not be visualized mammographically. In the management of a palpable breast mass, a negative mammogram must not discourage biopsy of a clinically suspicious lesion. Electronically Signed By: Faheem Mcclendon M.D. ar/penrad:04/28/2021 13:17:46 ACR BI-RADS Category 1: Negative 3341F PARENCHYMAL PATTERN: (F) - The breast(s) demonstrate(s) diffuse fatty replacement. BI-RADS CATEGORY: (1) - 1 RECOMMENDATION: (ANNUAL) - Recommend routine annual screening mammography. [id number] 1 year screening LATERALITY: (B)
== END 2021-04-28 12:26 | disposition home or self-care (01) ==
LOC: DI.N 12:25
DX: Z12.31 Encounter for screening mammogram for malignant neoplasm of breast (principal); Z80.3 Family history of malignant neoplasm of breast

== ENCOUNTER 2021-05-27 08:04 | Outpatient (CLI) | payer MEDICARE, OTHER ==
[2021-05-27 12:47] LABS: BASOPHILS % (AUTO) 0.6 %; EOSINOPHILS # (AUTO) 0.2 10^3/uL (0.0-0.7); EOSINOPHILS % (AUTO) 2.9 %; HCT - HEMATOCRIT 43.6 % (37.0-47.0); HGB - HEMOGLOBIN 14.7 g/dL (12.0-16.0); LYMPHOCYTES # (AUTO) 1.8 10^3/uL (1.5-3.5); LYMPHOCYTES % (AUTO) 26.6 %; MEAN CORPUSCULAR HEMOGLOBIN 33.8 pg (27.0-31.0); MEAN CORPUSCULAR HGB CONC 33.7 g/dL (32.0-36.0); MEAN CORPUSCULAR VOLUME 100.2 fL (81.0-99.0); MEAN PLATELET VOLUME 11.3 fL (7.9-10.8); MONOCYTES # (AUTO) 0.5 10^3/uL (0.0-1.0); MONOCYTES % (AUTO) 6.8 %; NEUTROPHILS # (AUTO) 4.3 10^3/uL (1.5-6.6); NEUTROPHILS % (AUTO) 62.8 %; PLT - PLATELET COUNT 184 10^3/uL (130-450); RED BLOOD COUNT 4.35 10^6/uL (4.20-5.40); RED CELL DISTRIBUTION WIDTH 13.1 % (12.0-15.0); WHITE BLOOD COUNT 6.8 x10^3/uL (4.8-10.8)
[2021-05-27 12:53] LABS: ALBUMIN 4.1 g/dL (3.2-5.5); ALBUMIN/GLOBULIN RATIO 1.3 (1.0-2.2); ALKALINE PHOSPHATASE 70 IU/L (42-121); ALT ALANINE AMINOTRANSFERASE 30 IU/L (10-60); AST ASPARTATE AMINOTRANSFERASE 25 IU/L (10-42); BILIRUBIN,TOTAL 0.6 mg/dL (0.2-1.0); BUN - BLOOD UREA NITROGEN 20 mg/dL (6-20); CALCIUM 9.3 mg/dL (8.5-10.3); CARBON DIOXIDE - CO2 28 mmol/L (21-32); CHLORIDE 98 mmol/L (101-111); CHOL/HDL RATIO 3.7 (<4.4); CHOLESTEROL 233 mg/dL; CREATININE 0.7 mg/dL (0.4-1.0); GFR - MDRD 83 (>89); GLUCOSE 103 mg/dL (70-100); HDL CHOLESTEROL 63 mg/dL; LDL CHOLESTEROL,CALCULATED 152 mg/dL; LDL/HDL RATIO 2.4 (<4.4); POTASSIUM 3.7 mmol/L (3.5-5.0); SODIUM 138 mmol/L (135-145); TOTAL PROTEIN 7.3 g/dL (6.7-8.2); TRIGLYCERIDES 90 mg/dL; VLDL CHOLESTEROL 18 mg/dL
[2021-05-27 13:03] LABS: THYROID STIMULATING HORMONE 1.87 uIU/mL (0.34-5.60)
== END 2021-05-27 08:05 | disposition home or self-care (01) ==
LOC: LAB.N 08:04
PROVIDERS: ATTEND Physician Assistant Medical
DX: E78.5 Hyperlipidemia, unspecified (principal); R73.9 Hyperglycemia, unspecified; I10 Essential (primary) hypertension; M25.561 Pain in right knee; M25.562 Pain in left knee
CPT/HCPCS: 36415; 80053; 80061; 81599; 82306; 83036; 83721; 84443; 85025

== ENCOUNTER 2021-06-02 10:21 | Outpatient (CLI) | payer MEDICARE, OTHER ==
[2021-06-02 11:07] VITALS: BP 154/89
--- NOTE | 2021-06-02 11:07 | SLEEP CARE CONSULTATION ---
Information from patient questionnaire entered by Onur Hua MA. I have reviewed and concur with the information entered by Onur Hua MA. This document represents the service I personally performed and the decisions made by , Denae Correia ARNP. History of Present Illness Service Date and Time: 06/02/2021 1021 Previous diagnosis: Severe, Obstructive Sleep Apnea-Hypopnea Syndrome AHI: 44.4 Reason for follow up: other (2 MONTH F/U, MELODY, NEED CODE, ) Equipment type: CPAP Equipment obtained from: Other ([employer]; getting supplies) Mask style: Nasal pillows Backup mask available: Yes (old mask) Last cushion change: 1 week Prior sleep studies: Yes Type of Sleep Study: Polysomnography HPI additional information: GOPI LIZ was diagnosed to have severe, AHI 44.4, obstructive sleep apnea-hypopnea syndrome and returned today for CPAP therapy 2 month follow-up. Sleep Study - Results Type of Sleep Study: Polysomnography Prior sleep studies: Yes CPAP Compliance Data - Data Reviewed with Patient Average duration of nightly device use: 6 hours 14 minutes Compliance rate %: 83.3 Current pressure setting (cmH2O): 4-15 (mean 6.5, P95 7.9) Average residual AHI: 0.5 Central apnea: 0.1 Average large leak: 4.9 L/min Subjective Missed days of use due to: reports: travel Patient concerns: reports: mask leak noise (just needs adjustment), dry mouth, nose, throat (occasional). denies: aerophagia, mask discomfort, air blowing in eyes, condensation in mask/hose, nasal congestion, epistaxis, other Observed to snore while using device: No Current pressure setting perceived as: comfortable On therapy, patient: reports: sleeping better, awakening more refreshed, being more awake and alert during the day, more rested overall. denies: drowsiness while driving Initial [place] Sleepiness Scale score: 8 Current [place] Sleepiness Scale score: 8 Allergies and Home Medications Home medication list reviewed: Yes (no changes) Allergy and home medication list: Allergies Sulfa (Sulfonamide Antibiotics) Allergy (Verified 08/14/19 15:29) Itching Review of Systems Review of systems same as previous: No (PT for leg issues) Physical Exam Vital signs obtained and entered by: Shaniqua HUA CMA AAMT Blood Pressure: 154/89 (left, pulse 74, resp 18) Heart Rate: 71 O2 Saturation: 96 Height: 5 ft 7 in Weight: 205 lb (w/o clothes) Weight change since last visit: 1 lb gain Body Mass Index: 32.1 BMI Classification: Obese Impression and Plan 1. Obstructive Sleep Apnea-Hypopnea Syndrome, severe, with good treatment compliance and good apnea control. On CPAP therapy, the patient has better sleep quality and is more rested overall. She is a little bit of dry mouth but this is not every night. She states she uses her tongue to walk the air from coming into her mouth but sometimes she will fall into a deep sleep that her mouth will relax more and she will vent a little. She states this is not an issue. She does get occasional mask leak noises but just adjusts her mask and this resolves. She is comfortable with current pressure settings and has significant improvement of her sleep apnea. Patient's apnea severity and rationale for treatment to reduce apnea, improve sleep quality and reduce cardiovascular and cerebrovascular events was reviewed. I also reviewed the benefit of consistent device use of CPAP for hypertension. 2. Obesity, unspecified. Patient has gained weight. Currently patients BMI is 32.1. Obesity increases the risk of apnea, CPAP pressure requirements and overall health risks especially cardiovascular and diabetes. Thus patient is advised to lose weight. Weight loss can be done with reducing portion size, reducing refined foods and balancing content with vegetables, fruit and whole grain foods. In addition, patient encouraged to get regular exercise. * Continue auto CPAP pressure at 4-15 cmH2O * Notify me if snoring with mask or feeling that the pressure is too much or too little * Attempt to lose weight * Call this office if any problems using CPAP * Return for follow up in 3 months, or sooner if concerns arise Counseling Topics: Spare mask, Weight loss health impact Visit Type: In Office Time Spent with Patient (minutes): 21 Provider Statement: I spent 100% of the Face to Face Visit with the patient with greater than 50% spent counseling the patient and coordination of care.
== END 2021-06-02 10:22 | disposition home or self-care (01) ==
LOC: SC 10:21
PROVIDERS: ATTEND Nurse Practitioner Family
DX: G47.33 Obstructive sleep apnea (adult) (pediatric) (principal); E66.9 Obesity, unspecified; Z68.32 Body mass index [BMI] 32.0-32.9, adult
CPT/HCPCS: 99213; G0463; 99212

== ENCOUNTER 2021-07-07 09:53 | Outpatient (CLI) | payer MEDICARE, OTHER ==
--- NOTE | 2021-07-07 14:02 | DEXA Report ---
PROCEDURE: Dexa Spine and/or Hip INDICATIONS: POST MENOPAUSAL TECHNIQUE: Dual energy x-ray absorptiometry (DXA) was performed on a [employer] System. Regions measur ed are the AP Spine, femoral neck, and if needed forearm. COMPARISON: None. FINDINGS: Lumbar Spine: Bone Mineral Density 1.162 g/cm/cm,T score 0.2 Left Hip: Bone Mineral Density 1.008 g/cm/cm,T score 0.0 Left Femoral Neck: Bone Mineral Density 0.916 g/cm/cm, T score -0.9 (T score greater or equal to -1.0: NORMAL) (T score from -1.1 to -2.4: OSTEOPENIA) (T score less than or equal to -2.5 to: OSTEOPOROSIS) Impression: 1. No osteopenia or osteoporosis of the lumbar spine or left hip. Patients with diagnosis of osteoporosis or osteopenia should have regular bone mineral density assess ment. For those eligible for Medicare, routine testing is allowed once every 2 years. Testing frequ ency can be increased for patients who have rapidly progressing disease or for those who are receivin g medical therapy to restore bone mass. Reviewed by: Lela Steel MD on 07/07/2021 2:00 PM PDT Approved by: Lela Steel MD on 07/07/2021 2:00 PM PDT Station ID: [id number]
== END 2021-07-07 09:54 | disposition home or self-care (01) ==
LOC: DI 09:53
PROVIDERS: ATTEND Physician Assistant Medical
DX: Z78.0 Asymptomatic menopausal state (principal)

== ENCOUNTER 2021-10-19 08:26 | Outpatient (CLI) | payer MEDICARE, OTHER ==
[2021-10-19 09:13] VITALS: BP 130/78
--- NOTE | 2021-10-19 09:13 | SLEEP CARE CONSULTATION ---
Information from patient questionnaire entered by Jorden Garsia. I have reviewed and concur with the information entered by Jorden Garsia. This document represents the service I personally performed and the decisions made by me, Denae Correia ARNP. History of Present Illness Service Date and Time: 10/19/2021825 Previous diagnosis: Severe, Obstructive Sleep Apnea-Hypopnea Syndrome AHI: 44.4 Reason for follow up: other (4 MONTH F/U) Equipment type: CPAP (Estefania) Equipment obtained from: Other ([employer]; getting supplies) Mask style: Nasal pillows Backup mask available: Yes (old mask) Last cushion change: last week Prior sleep studies: Yes Type of Sleep Study: Polysomnography HPI additional information: GOPI LIZ was diagnosed to have severe, AHI 44.4, obstructive sleep apnea-hypopnea syndrome and returned today for CPAP therapy four month follow- up. Sleep Study - Results Type of Sleep Study: Polysomnography Prior sleep studies: Yes CPAP Compliance Data - Data Reviewed with Patient Average duration of nightly device use: 6:24 hours Compliance rate %: 83 (75/80 days) Current pressure setting (cmH2O): 4-15 (mean 6.5, avg 7.9) Average residual AHI: 1.0 Average large leak: 0 Subjective Patient concerns: reports: mask leak noise, condensation in mask/hose (once, resolved), dry mouth, nose, throat (dry mouth). denies: aerophagia, mask discomfort, air blowing in eyes, nasal congestion, epistaxis, other Observed to snore while using device: No Current pressure setting perceived as: comfortable On therapy, patient: reports: sleeping better, awakening more refreshed, being more awake and alert during the day, more rested overall. denies: drowsiness while driving Initial [place] Sleepiness Scale score: 8 Current [place] Sleepiness Scale score: 7 (10/18/21) Allergies and Home Medications Drug allergies reviewed: Yes (Sulfa) Home medication list reviewed: Yes (no changes) Allergy and home medication list: Allergies Sulfa (Sulfonamide Antibiotics) Allergy (Verified 08/14/19 15:29) Itching Review of Systems Review of systems same as previous: Yes (no changes) Physical Exam Vital signs obtained and entered by: JAMARI MCKEON Blood Pressure: 130/78 (LEFT ARM ) Cuff size: regular Heart Rate: 65 O2 Saturation: 97 Height: 5 ft 7 in Weight: 193 lb Body Mass Index: 30.2 BMI Classification: Obese Impression and Plan 1. Obstructive Sleep Apnea-Hypopnea Syndrome, severe, with good treatment compliance and good apnea control. On CPAP therapy, the patient has better sleep quality and is more rested overall. Patient gets some air leak noises from the mask and she will wake up with a dry mouth, her lips are dry and stuck together. She has a Estefania CPAP and thinks her humidity is set at 2-3. I advised her to try to increase the humidity. She may also use a oral moisturizer like XyloMelts or Biotene spray. She states she is familiar with Biotene. The patients pressure will be changed to autoCPAP 6-10 cmH20 to reflect pressures being used. Patient advised to contact me if pressure change is uncomfortable so that it can be adjusted. Goals for apnea control discussed. Patient's apnea severity and rationale for treatment to reduce apnea, improve sleep quality and reduce cardiovascular and cerebrovascular events was reviewed. I also reviewed the benefit of consistent device use of CPAP for hypertension. 2. Obesity, unspecified. Currently patients BMI is 30.2. Obesity increases the risk of apnea, CPAP pressure requirements and overall health risks especially cardiovascular and diabetes. Thus patient is advised to lose weight. * Change auto CPAP pressure to 6-10 cmH2O * Notify me if snoring with mask or feeling that the pressure is too much or too little * Attempt to lose weight * Call this office if any problems using CPAP * Return for follow up in 6 months, or sooner if concerns arise Counseling Topics: Spare mask, Weight loss health impact Visit Type: In Office Time Spent with Patient (minutes): 24 Provider Statement: I spent 100% of the Face to Face Visit with the patient with greater than 50% spent counseling the patient and coordination of care.
== END 2021-10-19 08:27 | disposition home or self-care (01) ==
LOC: SC 08:26
PROVIDERS: ATTEND Nurse Practitioner Family
DX: G47.33 Obstructive sleep apnea (adult) (pediatric) (principal); E66.9 Obesity, unspecified; Z68.30 Body mass index [BMI] 30.0-30.9, adult
CPT/HCPCS: 99213; G0463; 99212

== ENCOUNTER 2021-11-22 12:24 | Outpatient (CLI) | payer MEDICARE, OTHER | END 2021-11-22 12:25 | disposition home or self-care (01) | LOC: DI 12:24 | PROVIDERS: ATTEND Family Medicine | DX: R60.0 Localized edema (principal); G47.30 Sleep apnea, unspecified | CPT/HCPCS: 93306 ==

== ENCOUNTER 2021-11-24 08:59 | Outpatient (CLI) | payer MEDICARE, OTHER ==
[2021-11-24 12:19] LABS: ESTIMATED AVERAGE GLUCOSE 105 mg/dL (70-100); HEMOGLOBIN A1c% 5.3 % (4.27-6.07)
[2021-11-24 12:30] LABS: ALBUMIN/GLOBULIN RATIO 1.3 (1.0-2.2); ALKALINE PHOSPHATASE 84 IU/L (42-121); ALT ALANINE AMINOTRANSFERASE 28 IU/L (10-60); AST ASPARTATE AMINOTRANSFERASE 26 IU/L (10-42); BILIRUBIN,TOTAL 0.7 mg/dL (0.2-1.0); BUN - BLOOD UREA NITROGEN 22 mg/dL (6-20); CALCIUM 9.5 mg/dL (8.5-10.3); CARBON DIOXIDE - CO2 28 mmol/L (21-32); CHLORIDE 102 mmol/L (101-111); CHOL/HDL RATIO 4.1 (<4.4); CHOLESTEROL 215 mg/dL; CREATININE 0.8 mg/dL (0.4-1.0); GFR - MDRD 71 (>89); GLUCOSE 104 mg/dL (70-100); HDL CHOLESTEROL 53 mg/dL; LDL CHOLESTEROL,CALCULATED 138 mg/dL; LDL/HDL RATIO 2.6 (<4.4); SODIUM 139 mmol/L (135-145); TRIGLYCERIDES 122 mg/dL; VLDL CHOLESTEROL 24 mg/dL
== END 2021-11-24 09:00 | disposition home or self-care (01) ==
LOC: LAB.N 08:59
PROVIDERS: ATTEND Physician Assistant Medical
DX: E78.5 Hyperlipidemia, unspecified (principal); R73.9 Hyperglycemia, unspecified
CPT/HCPCS: 36415; 80053; 80061; 83036; 83721

== ENCOUNTER 2022-01-04 11:05 | Outpatient (CLI) | payer MEDICARE, OTHER ==
[2022-01-04 17:52] LABS: CALCIUM 9.2 mg/dL (8.5-10.3); CREATININE 0.7 mg/dL (0.4-1.0); POTASSIUM 4.2 mmol/L (3.5-5.0)
== END 2022-01-04 11:06 | disposition home or self-care (01) ==
LOC: LAB.N 11:05
PROVIDERS: ATTEND Physician Assistant Medical
DX: R60.0 Localized edema (principal)
CPT/HCPCS: 36415; 80048

== ENCOUNTER 2022-01-18 09:20 | Emergency (ER) | payer MEDICARE, OTHER ==
[2022-01-18 09:55] LABS: BILIRUBIN,URINE NEGATIVE (NEGATIVE); GLUCOSE, URINE (UA) NEGATIVE (NEGATIVE); KETONES,URINE (UA) TRACE mg/dL (NEGATIVE); LEUKOCYTE ESTERASE, URINE NEGATIVE (NEGATIVE); NITRITE,URINE NEGATIVE (NEGATIVE); OCCULT BLOOD,URINE LARGE (NEGATIVE); PROTEIN,URINE 30 mg/dL (NEGATIVE); UROBILINOGEN,URINE 0.2 (NORMAL) E.U./dL (NORMAL)
[2022-01-18 09:56] LABS: BASOPHILS # (AUTO) 0.1 10^3/uL (0.0-0.1); BASOPHILS % (AUTO) 0.6 %; EOSINOPHILS # (AUTO) 0.1 10^3/uL (0.0-0.7); EOSINOPHILS % (AUTO) 1.8 %; HCT - HEMATOCRIT 42.8 % (37.0-47.0); HGB - HEMOGLOBIN 14.3 g/dL (12.0-16.0); LYMPHOCYTES % (AUTO) 25.3 %; MEAN CORPUSCULAR HEMOGLOBIN 32.8 pg (27.0-31.0); MEAN CORPUSCULAR HGB CONC 33.4 g/dL (32.0-36.0); MEAN CORPUSCULAR VOLUME 98.2 fL (81.0-99.0); MEAN PLATELET VOLUME 10.2 fL (7.9-10.8); MONOCYTES # (AUTO) 0.5 10^3/uL (0.0-1.0); NEUTROPHILS # (AUTO) 5.1 10^3/uL (1.5-6.6); NEUTROPHILS % (AUTO) 66.2 %; PLT - PLATELET COUNT 195 10^3/uL (130-450); RED BLOOD COUNT 4.36 10^6/uL (4.20-5.40); WHITE BLOOD COUNT 7.7 x10^3/uL (4.8-10.8)
[2022-01-18 09:58] LABS: CLARITY,URINE CLOUDY (CLEAR)
[2022-01-18 10:06] LABS: BACTERIA,URINE Few /HPF (None Seen); RBC,URINE TNTC /HPF (0-5); SQUAMOUS EPITHELIAL CELL,UR RARE Squamous (<= Few); WBC,URINE >25 /HPF (0-5)
[2022-01-18 10:09] LABS: ALBUMIN 4.1 g/dL (3.2-5.5); ALBUMIN/GLOBULIN RATIO 1.5 (1.0-2.2); BILIRUBIN,TOTAL 0.8 mg/dL (0.2-1.0); CALCIUM 9.5 mg/dL (8.5-10.3); CREATININE 0.7 mg/dL (0.4-1.0); POTASSIUM 3.8 mmol/L (3.5-5.0); TOTAL PROTEIN 6.9 g/dL (6.7-8.2)
--- NOTE | 2022-01-18 11:07 | ED Physician Documentation ---
PD HPI ABD PAIN - Stated complaint Stated Complaint: LOW ABD PX/NAUSEA - Chief complaint Chief Complaint: Abd Pain - History obtained from History obtained from: Patient - History of Present Illness Timing - onset: How many hours ago (3), Today Timing - duration: Hours (3) Timing - details: Abrupt onset, Still present Quality: Aching, Sharp, Other Location: RLQ Radiation: Right flank Improved by: No: Laying still Worsened by: No: Moving, Breathing, Palpation Associated symptoms: Nausea, Vomiting, Hematuria, Loss of appetite. No: Fever, Diarrhea, Constipation, Dysuria Similar symptoms before: Has not had sx before Recently seen: Not recently seen Review of Systems Constitutional: denies: Fever, Chills, Myalgias Nose: denies: Rhinorrhea / runny nose, Congestion Throat: denies: Sore throat Respiratory: denies: Cough GI: reports: Nausea, Vomiting. denies: Abdominal Pain, Abdominal Swelling, Diarrhea Skin: denies: Rash Musculoskeletal: reports: Back pain Neurologic: denies: Near syncope PD PAST MEDICAL HISTORY - Past Medical History Cardiovascular: Hypertension Respiratory: Pneumonia, Shortness of breath Neuro: None Endocrine/Autoimmune: None, Other GI: GERD, Colon polyps ZOOGLER: None : None HEENT: None Psych: None Musculoskeletal: Osteoarthritis, Other Derm: Other - Past Surgical History General: Colonoscopy, EGD Ortho: Spine surgery - Present Medications Home Medications: Ambulatory Orders Medication Instructions Recorded Confirmed Furosemide [Lasix] 20 mg PO DAILY 01/18/22 01/18/22 Naproxen 250 mg PO TID 7 Days #20 tablet 01/18/22 Ondansetron Odt [Zofran] 4 mg TL Q6H PRN #15 tablet 01/18/22 Oxycodone HCl/Acetaminophen 1 each PO Q6H PRN #20 tablet 01/18/22 [Percocet 5-325 mg Tablet] Tacrolimus [Prograf] 1 mg PO DAILY 01/18/22 01/18/22 - Allergies Allergies/Adverse Reactions: Allergies Allergy/AdvReac Type Severity Reaction Status Date / Time Sulfa (Sulfonamide Allergy Itching Verified 01/18/22 09:27 Antibiotics) - Social History Does the pt smoke?: No Smoking Status: Never smoker Does the pt drink ETOH?: Yes Does the pt have substance abuse?: No PD ED PE NORMAL - Vitals Vital signs reviewed: Yes - General General: Alert and oriented X 3, Well developed/nourished, Other (appears in significant pain.) - Neck Neck: Supple, no meningeal sign, No adenopathy - Cardiac Cardiac: RRR, No murmur - Respiratory Respiratory: Clear bilaterally - Abdomen Abdomen: Normal bowel sounds, Soft, Non tender (minimal tenderness right lower a bd and right flank, quite little compared to degree of pain in that area. ), Non distended, No organomegaly - Female Female : Deferred - Rectal Rectal: Deferred - Back Back: Other (right flank) - Derm Derm: Normal color, Warm and dry - Extremities Extremities: Normal ROM s pain, No edema, No calf tenderness / cord - Neuro Neuro: Alert and oriented X 3, No motor deficit, Normal speech Results - Vitals Vitals: Vital Signs - 24 hr 01/18/22 01/18/22 01/18/22 09:27 10:58 12:00 Temperature 36.4 C L Heart Rate 51 L 46 L 59 L Respiratory 18 16 18 Rate Blood Pressure 176/68 H 167/66 H 118/107 H O2 Saturation 100 96 99 If not protocol 2 : Oxygen Flow, liters/minute 01/18/22 14:19 Temperature 36.7 C Heart Rate 62 Respiratory 16 Rate Blood Pressure 114/66 O2 Saturation 96 If not protocol : Oxygen Flow, liters/minute Oxygen O2 Source Room air - Labs Labs: Laboratory Tests 01/18/22 01/18/22 01/18/22 09:42 09:51 09:51 WBC 7.7 RBC 4.36 Hgb 14.3 Hct 42.8 MCV 98.2 MCH 32.8 H MCHC 33.4 RDW 13.0 Plt Count 195 MPV 10.2 Neut # (Auto) 5.1 Lymph # (Auto) 2.0 Gregory # (Auto) 0.5 Eos # (Auto) 0.1 Baso # (Auto) 0.1 Absolute Nucleated RBC 0.00 Nucleated RBC % 0.0 Sodium 139 Potassium 3.8 Chloride 101 Carbon Dioxide 28 Anion Gap 10.0 BUN 25 H Creatinine 0.7 Estimated GFR (MDRD) 82 L Glucose 155 H Calcium 9.5 Total Bilirubin 0.8 AST 23 ALT 26 Alkaline Phosphatase 89 Total Protein 6.9 Albumin 4.1 Globulin 2.8 Albumin/Globulin Ratio 1.5 Lipase 29 Urine Color RED/BLOODY Urine Clarity CLOUDY Urine pH 6.0 Ur Specific [place] >=1.030 H Urine Protein 30 H Urine Glucose (UA) NEGATIVE Urine Ketones TRACE Urine Occult Blood LARGE H Urine Nitrite NEGATIVE Urine Bilirubin NEGATIVE Urine Urobilinogen 0.2 (NORMAL) Ur Leukocyte Esterase NEGATIVE Urine RBC TNTC H Urine WBC >25 H Ur Squamous Epith Cells RARE Squamous Urine Bacteria Few Ur Microscopic Review INDICATED Urine Culture Comments NOT INDICATED - Rads (name of study) abd/pelvic ct Radiology: Prelim report reviewed (2 mm distal right ureteral stone with mild hydro. Renal stone 12 mm also noted. ), See rad report PD MEDICAL DECISION MAKING - ED course Complexity details: reviewed results (distal ureteral stone. ), re-evaluated patient (pain much improved with meds. ), considered differential (abrupt pain in area most c/w kidney stone or vascular cause. exam does not suggest appy nor gb. ), d/w patient Departure - Departure Disposition: 01 Home, Self Care Clinical Impression: Right lower quadrant abdominal pain, Ureterolithiasis Condition: Stable Record reviewed to determine appropriate education?: Yes Instructions: ED Stone Renal W Colic Follow-Up: Felisha Hernández PA-C [Primary Care Provider] - Prescriptions: Naproxen 250 mg PO TID 7 Days #20 tablet Oxycodone HCl/Acetaminophen [Percocet 5-325 mg Tablet] 1 each PO Q6H PRN #20 tablet PRN Reason: pain Ondansetron Odt [Zofran] 4 mg TL Q6H PRN #15 tablet PRN Reason: Nausea / Vomiting Comments: You do have a small kidney stone that you are passing on the right ureter. It is almost to the bladder at this point. Its only 2 mm. Incidentally there is another kidney stone about 12 to 14 mm size in the kidney itself on the right. However the location of this looks like it be unlikely to try to pass in most likely will never bother you. You could follow-up with the urologist in the future to discuss whether preemptive treatment such as lithotripsy is indicated or not for this. For now stay well-hydrated. Use an anti-inflammatory such as naproxen 250 mg 2- 3 times daily for the next several days to week. Add Tylenol every 4-6 hours if needed for pain or Percocet if needed for worse pain. Ondansetron if needed for nausea. I would expect a stone of this size and location to pass 90% of the time within 1 to 2 days. Recheck if still requiring pain medicines and such beyond 3 to 5 days and return sooner if worse. The blood in the urine should likely improve over couple of days as the ureter heals. I sent your prescriptions to your preferred pharmacy. I am prescribing a short course of narcotic pain medication for you. These are potentially dangerous and addictive medications that should be used carefully. These medications may constipate you. Take an [id number] stool softener such as docusate twice daily with plenty of water while taking these medications. If you go 24 hours without a bowel movement, take [id number] MiraLAX, per package instructions. Do not drink or drive while taking these medications. If you received narcotic or sedating medications while in the emergency department do not drive for 24 hours. Store this medication in a safe, secure place and out of reach of children. It is a violation of federal law to give or sell this medication to another person or to use in a manner other than prescribed. The ED will not refill narcotic prescriptions, including prescriptions lost or stolen. You can dispose of unwanted medications at the [facility] office or at several pharmacies such as [facility]. Discharge Date/Time: 01/18/22 14:26
[2022-01-18] MEDS ORDERED: SODIUM CHLORIDE 0.9% 1,000 ML IV STA (11:19)
[2022-01-18] MEDS ORDERED: ONDANSETRON 4 MG/2 ML VIAL IVP STA (11:19)
[2022-01-18] MEDS ORDERED: KETOROLAC 15 MG/ML VIAL IVP STA (11:19)
[2022-01-18] MEDS ORDERED: HYDROmorphone 1 MG/ML CARPUJECT IVP STA (11:19)
[2022-01-18] MEDS ORDERED: iohexoL-300 100 ML VIAL ONE (12:33)
--- NOTE | 2022-01-18 13:15 | CT Report ---
PROCEDURE: ABDOMEN/PELVIS W INDICATIONS: right abd/flank pain CONTRAST: 100ml Omnipaque 300 TECHNIQUE: After the administration of contrast, 5 mm thick sections acquired from the diaphragms to the sym physis. 5 mm thick coronal and sagittal reformats were acquired. For radiation dose reduction, the following was used: automated exposure control, adjustment of mA and/or kV according to patient size . COMPARISON: None. FINDINGS: Image quality: Excellent. ABDOMEN: Lung bases: Lung bases are clear. Heart size is normal. There is a small hiatal hernia. Solid organs: Liver and spleen are normal in size and enhancement. Moderate hepatic steatosis. Gall bladder Biliary system is non dilated. Pancreas enhances normally. No adrenal nodules. There is a 2 mm stone in the distal right ureter at the right UVJ causing moderate right hydronephros is and hydroureter. Additional nonobstructive right renal calculi are seen with the largest measuring 12 x 20 mm inferior pole. Left kidney demonstrates slightly decreased enhancement compared to the ri ght kidney. There is mild right perinephric stranding and trace perinephric fluid. There is a large p arapelvic cyst in the right kidney. A 0.7 cm hypodense nodule in mid right kidney is also likely a cy st. No left renal stone or hydronephrosis. Peritoneum and bowel: Bowel loops demonstrate normal wall thickness and caliber. There is colonic di verticulosis. No acute diverticulitis. No free fluid or air. Nodes and vessels: No retroperitoneal or mesenteric adenopathy by size criteria. Aorta and inferior vena cava are normal in size. Miscellaneous: Small fat-containing umbilical hernia. PELVIS: Genitourinary: Uterus and ovaries are unremarkable. No free fluid in the cul-de-sac or adnexa. Bladd er wall thickness is normal. Miscellaneous: No inguinal hernias or adenopathy. Bones: No suspicious bony lesions. No vertebral body compression fractures. There is degenerative disc and facet disease in lumbar spine causing moderate central canal stenosis. IMPRESSION: 1. A 2 mm obstructive right UVJ stone causing moderate right hydronephrosis and hydroureter. 2. Multiple nonobstructive right renal calculi. 3. Hepatic steatosis. 4. Diverticulosis without diverticulitis. Reviewed by: Trell Womack MD on 01/18/2022 1:14 PM PST Approved by: Trell Womack MD on 01/18/2022 1:14 PM [facility] Station ID: [id number]
[2022-01-18] MEDS ORDERED: HYDROmorphone 0.5 MG/0.5 ML SYRINGE IVP STA (13:56)
[2022-01-18 14:20] VITALS: BP 114/66
[2022-01-18] MEDS ORDERED: iohexoL-300 100 ML VIAL IVP ONE (16:41)
== END 2022-01-18 14:26 | disposition home or self-care (01) ==
LOC: ED 09:20
DX: N13.2 Hydronephrosis with renal and ureteral calculous obstruction (principal)
CPT/HCPCS: 36415; 74177; 80053; 81001; 83690; 85025; 96374; 96375; 96376; 99283; 99284; J1170; Q9967; 81003; 87086

== ENCOUNTER 2022-07-05 09:02 | Outpatient (CLI) | payer MEDICARE, OTHER ==
[2022-07-05 12:07] LABS: ALBUMIN 4.3 g/dL (3.2-5.5); ALBUMIN/GLOBULIN RATIO 1.5 (1.0-2.2); ALKALINE PHOSPHATASE 90 IU/L (42-121); ALT ALANINE AMINOTRANSFERASE 20 IU/L (10-60); AST ASPARTATE AMINOTRANSFERASE 19 IU/L (10-42); BILIRUBIN,TOTAL 0.7 mg/dL (0.2-1.0); BUN - BLOOD UREA NITROGEN 20 mg/dL (6-20); CALCIUM 9.2 mg/dL (8.5-10.3); CARBON DIOXIDE - CO2 31 mmol/L (21-32); CHLORIDE 103 mmol/L (101-111); CHOL/HDL RATIO 2.9 (<4.4); CHOLESTEROL 226 mg/dL; CREATININE 0.8 mg/dL (0.4-1.0); GFR - MDRD 71 (>89); GLUCOSE 108 mg/dL (70-100); HDL CHOLESTEROL 77 mg/dL; LDL CHOLESTEROL,CALCULATED 132 mg/dL; LDL/HDL RATIO 1.7 (<4.4); POTASSIUM 4.4 mmol/L (3.5-5.0); SODIUM 139 mmol/L (135-145); TOTAL PROTEIN 7.2 g/dL (6.7-8.2); TRIGLYCERIDES 85 mg/dL; VLDL CHOLESTEROL 17 mg/dL
[2022-07-05 12:15] LABS: ESTIMATED AVERAGE GLUCOSE 103 mg/dL (70-100); HEMOGLOBIN A1c% 5.2 % (4.27-6.07)
== END 2022-07-05 09:03 | disposition home or self-care (01) ==
LOC: LAB.N 09:02
PROVIDERS: ATTEND Physician Assistant Medical
DX: E78.5 Hyperlipidemia, unspecified (principal); R73.9 Hyperglycemia, unspecified
CPT/HCPCS: 36415; 80053; 80061; 83036; 83721

== ENCOUNTER 2022-07-24 11:08 | Outpatient (CLI) | payer MEDICARE, OTHER | END 2022-07-24 11:09 | disposition home or self-care (01) | LOC: LAB.N 11:08 | PROVIDERS: ATTEND Physician Assistant Medical | DX: R20.2 Paresthesia of skin (principal) | CPT/HCPCS: 36415; 82607 ==

== ENCOUNTER 2022-09-18 10:55 | Outpatient (CLI) | payer MEDICARE, OTHER | END 2022-09-18 10:56 | disposition home or self-care (01) | LOC: NS 10:55 | PROVIDERS: ATTEND Physician Assistant Medical | DX: Z71.3 Dietary counseling and surveillance (principal); N20.0 Calculus of kidney | CPT/HCPCS: 97802 ==

== ENCOUNTER 2023-02-09 10:22 | Outpatient (CLI) | payer MEDICARE, OTHER ==
[2023-02-09 17:50] LABS: ALBUMIN 4.3 g/dL (3.2-5.5); ALBUMIN/GLOBULIN RATIO 1.5 (1.0-2.2); ALKALINE PHOSPHATASE 76 IU/L (42-121); ALT ALANINE AMINOTRANSFERASE 17 IU/L (10-60); AST ASPARTATE AMINOTRANSFERASE 17 IU/L (10-42); BILIRUBIN,TOTAL 0.6 mg/dL (0.2-1.0); BUN - BLOOD UREA NITROGEN 19 mg/dL (6-20); CALCIUM 9.4 mg/dL (8.5-10.3); CARBON DIOXIDE - CO2 30 mmol/L (21-32); CHLORIDE 102 mmol/L (101-111); CHOL/HDL RATIO 3.6 (<4.4); CHOLESTEROL 252 mg/dL; CREATININE 0.8 mg/dL (0.6-1.3); GFR - MDRD 71 (>89); GLUCOSE 96 mg/dL (74-104); HDL CHOLESTEROL 70 mg/dL; LDL CHOLESTEROL,CALCULATED 160 mg/dL; LDL/HDL RATIO 2.3 (<4.4); POTASSIUM 4.2 mmol/L (3.5-4.5); SODIUM 138 mmol/L (135-145); TOTAL PROTEIN 7.1 g/dL (6.4-8.9); TRIGLYCERIDES 112 mg/dL (48-352); VLDL CHOLESTEROL 22 mg/dL
[2023-02-09 21:28] LABS: ESTIMATED AVERAGE GLUCOSE 105 mg/dL (70-100); HEMOGLOBIN A1c% 5.3 % (4.27-6.07)
== END 2023-02-09 10:23 | disposition home or self-care (01) ==
LOC: LAB.N 10:22
PROVIDERS: ATTEND Physician Assistant Medical
DX: E78.5 Hyperlipidemia, unspecified (principal); R73.9 Hyperglycemia, unspecified; E53.8 Deficiency of other specified B group vitamins
CPT/HCPCS: 36415; 80053; 80061; 82607; 83036; 83721

== ENCOUNTER 2023-04-24 16:29 | Outpatient (CLI) | payer MEDICARE, OTHER ==
--- NOTE | 2023-04-24 18:08 | XRAY Report ---
PROCEDURE: Abdomen 1 V INDICATIONS: URIC ACID NEPHROLLITHIASIS TECHNIQUE: One view of the abdomen acquired. COMPARISON: None FINDINGS: Surgical changes and devices: None. Bowel: Bowel gas pattern is normal. Soft tissues: No suspicious abdominal calcifications. Visualized solid organ contours appear normal in size. Bones: No suspicious bony lesions. IMPRESSION: No acute abdominal pathology. Reviewed by: Lex Ruth MD on 04/24/2023 5:07 PM [facility] Approved by: Lex Ruth MD on 04/24/2023 5:07 PM [facility] Station ID: [id number]
== END 2023-04-24 16:30 | disposition home or self-care (01) ==
LOC: DI 16:29
PROVIDERS: ATTEND Physician Assistant Medical
DX: N20.0 Calculus of kidney (principal)

== ENCOUNTER 2023-05-09 07:42 | Outpatient (CLI) | payer MEDICARE, OTHER ==
[2023-05-09 08:15] LABS: CREATININE 0.7 mg/dL (0.6-1.3)
[2023-05-09] MEDS: iohexoL-300 150 ML BOTTLE IVP ONE (10:23)
--- NOTE | 2023-05-09 12:25 | CT Report ---
PROCEDURE: IVP INDICATIONS: URIC ACID NEPHROLITHIASIS CONTRAST: iohex 300 150ml TECHNIQUE: A [address] of the abdomen and pelvis was performed. Non-contrast and contrast images were recorded and evaluated at appropriate window settings. Images were recorded and evaluated at appropriate windo w settings. Reformats: coronal and sagittal. For radiation dose reduction, the following was used: au tomated exposure control, adjustment of convex left scoliosis. 3 interval casting with improved align ment at the tibia and fibula fractures. MA and/or kV according to patient size. COMPARISON: CT abdomen and pelvis dated January 13, 2022. FINDINGS: Image quality: Diagnostic. Urinary system: Both kidneys are normal in size. No hydronephrosis bilaterally. Right lower pole par apelvic cysts. Right lower pole cluster of nonobstructive nephroliths measuring up to 3 mm ( ). Bilateral subcentimeter cortical hypodensities are too small to characterize, statistically cysts. No solid masses or complex cysts which require follow up. The opacified renal calyces and ureters ap pear normal, without filling defect. Bladder wall thickness is normal, accounting for underdistentio n. No calcified bladder stones. No filling defect within the opacified bladder. OTHER Lower chest: Unremarkable. Liver: No solid mass. Subcentimeter hypodensity in the left hepatic lobe is too small to characterize (11/24). Gallbladder and biliary tree: No radiopaque stones or wall thickening. No biliary dilation. Spleen: No splenomegaly. Pancreas: No pancreatic ductal dilation. Adrenals: No adrenal nodule. Stomach, bowel and peritoneum: Nonobstructive bowel. Diverticulosis, without diverticulitis. Abdominal Lymph nodes: No central or retroperitoneal adenopathy. Vessels: Mild calcification of the abdominal aorta. Reproductive organs: Prominence of the lower uterine segment/cervix measuring 5.2 x 3.6 cm (), s imilar to prior. Pelvic Lymph nodes: Unremarkable. Bones: No aggressive osseous abnormality. No acute fracture. Degenerative changes of the spine. Other: Tiny fat-containing umbilical hernia. IMPRESSION: 1.No hydronephrosis bilaterally. No suspicious filling defect in the collecting system. Right lower p ole exophytic parapelvic cyst. No dedicated follow-up needed. 2.Right lower pole cluster of nonobstructive nephroliths measuring up to 3 mm. No left-sided nephroli thiasis. 3.Prominence of the lower uterine segment/cervix measuring 5.2 x 3.6 cm. Findings may be secondary to component of fluid or a lesion. Recommend a pelvic ultrasound for further evaluation. 4.Diverticulosis, without diverticulitis. Reviewed by: Lia Quevedo MD on 05/09/2023 12:24 PM PDT Approved by: Lia Quevedo MD on 05/09/2023 12:24 PM PDT Station ID: [id number]
== END 2023-05-09 07:43 | disposition home or self-care (01) ==
LOC: LAB 07:42
PROVIDERS: ATTEND Physician Assistant Medical
DX: N20.0 Calculus of kidney (principal); R31.0 Gross hematuria; N28.1 Cyst of kidney, acquired; R93.89 Abnormal findings on diagnostic imaging of other specified body structures; K57.90 Diverticulosis of intestine, part unspecified, without perforation or abscess without bleeding
CPT/HCPCS: 36415; 82565; 84520

== ENCOUNTER 2023-06-25 12:59 | Outpatient (CLI) | payer MEDICARE, OTHER ==
--- NOTE | 2023-06-26 08:56 | Mammography Report ---
BILATERAL DIGITAL SCREENING MAMMOGRAM 3D/2D: 06/25/2023 CLINICAL: Routine screening. Family history of breast cancer. Comparison is made to exams dated: 04/28/2021 mammogram, 01/14/2020 mammogram, and 06/07/2017 mammogram - [facility]. Both breasts are almost entirely fatty (category a/<25% glandular tissue). No significant masses, calcifications, or other findings are seen in either breast. There has been no significant interval change. IMPRESSION: NEGATIVE There is no mammographic evidence of malignancy. A 1 year screening mammogram is recommended. Based on the Tyrer Cuzick model (a risk assessment model) the patient's lifetime risk is 4.1% and her 10 year risk is 3.0%. According to the ACR, ACS, and NCCN guidelines, an annual breast MRI exam rema g with mammogram is recommended if the patient's lifetime risk is 20% or greater. This exam was interpreted at Station ID: [id number]. NOTE: For mammograms, a report in lay terms will be sent to the patient. Approximately 15% of breast malignancies will not be visualized mammographically. In the management of a palpable breast mass, a negative mammogram must not discourage biopsy of a clinically suspicious lesion. Electronically Signed By: Vincent carlos/gladis:06/25/2023 14:01:38 letter sent: No_Letter ACR BI-RADS Category 1: Negative 3341F PARENCHYMAL PATTERN: (F) - The breast(s) demonstrate(s) diffuse fatty replacement. BI-RADS CATEGORY: (1) - 1 RECOMMENDATION: (ANNUAL) - Recommend routine annual screening mammography. [id number] 1 year screening LATERALITY: (B)
== END 2023-06-25 13:00 | disposition home or self-care (01) ==
LOC: DI.N 12:59
DX: Z12.31 Encounter for screening mammogram for malignant neoplasm of breast (principal); Z80.3 Family history of malignant neoplasm of breast

== ENCOUNTER 2023-07-02 15:06 | Outpatient (CLI) | payer MEDICARE, OTHER ==
[2023-07-02 18:09] LABS: BASOPHILS % (AUTO) 0.7 %; EOSINOPHILS # (AUTO) 0.2 10^3/uL (0.0-0.7); EOSINOPHILS % (AUTO) 2.7 %; HGB - HEMOGLOBIN 14.9 g/dL (12.0-16.0); LYMPHOCYTES # (AUTO) 1.8 10^3/uL (1.5-3.5); LYMPHOCYTES % (AUTO) 30.1 %; MEAN CORPUSCULAR HEMOGLOBIN 31.4 pg (27.0-31.0); MEAN CORPUSCULAR HGB CONC 32.4 g/dL (32.0-36.0); MEAN PLATELET VOLUME 11.9 fL (7.9-10.8); MONOCYTES # (AUTO) 0.3 10^3/uL (0.0-1.0); MONOCYTES % (AUTO) 5.5 %; NEUTROPHILS # (AUTO) 3.6 10^3/uL (1.5-6.6); NEUTROPHILS % (AUTO) 60.8 %; PLT - PLATELET COUNT 177 10^3/uL (130-450); RED BLOOD COUNT 4.74 10^6/uL (4.20-5.40); RED CELL DISTRIBUTION WIDTH 12.4 % (12.0-15.0)
[2023-07-02 18:33] LABS: ALT ALANINE AMINOTRANSFERASE 12 IU/L (10-60); AST ASPARTATE AMINOTRANSFERASE 13 IU/L (10-42)
== END 2023-07-02 15:07 | disposition home or self-care (01) ==
LOC: LAB.N 15:06
PROVIDERS: ATTEND Dentist General Practice
DX: K12.39 Other oral mucositis (ulcerative) (principal)
CPT/HCPCS: 36415; 84450; 84460; 85025

== ENCOUNTER 2023-09-04 15:14 | Outpatient (CLI) | payer MEDICARE, OTHER ==
[2023-09-04 17:57] LABS: BASOPHILS # (AUTO) 0.1 10^3/uL (0.0-0.1); EOSINOPHILS # (AUTO) 0.3 10^3/uL (0.0-0.7); EOSINOPHILS % (AUTO) 5.2 %; HCT - HEMATOCRIT 39.4 % (37.0-47.0); HGB - HEMOGLOBIN 12.9 g/dL (12.0-16.0); LYMPHOCYTES # (AUTO) 1.9 10^3/uL (1.5-3.5); LYMPHOCYTES % (AUTO) 33.6 %; MEAN CORPUSCULAR HEMOGLOBIN 33.9 pg (27.0-31.0); MEAN CORPUSCULAR HGB CONC 32.7 g/dL (32.0-36.0); MEAN CORPUSCULAR VOLUME 103.4 fL (81.0-99.0); MEAN PLATELET VOLUME 11.4 fL (7.9-10.8); MONOCYTES # (AUTO) 0.4 10^3/uL (0.0-1.0); MONOCYTES % (AUTO) 7.7 %; NEUTROPHILS % (AUTO) 52.2 %; PLT - PLATELET COUNT 157 10^3/uL (130-450); RED BLOOD COUNT 3.81 10^6/uL (4.20-5.40); RED CELL DISTRIBUTION WIDTH 15.8 % (12.0-15.0); WHITE BLOOD COUNT 5.7 x10^3/uL (4.8-10.8)
[2023-09-04 18:13] LABS: ALT ALANINE AMINOTRANSFERASE 13 IU/L (10-60); AST ASPARTATE AMINOTRANSFERASE 16 IU/L (10-42)
== END 2023-09-04 15:15 | disposition home or self-care (01) ==
LOC: LAB.N 15:14
PROVIDERS: ATTEND Dentist General Practice
DX: K12.39 Other oral mucositis (ulcerative) (principal)
CPT/HCPCS: 36415; 84450; 84460; 85025